=== PATIENT | female | born 1960 | race Caucasian/White ===

== ENCOUNTER → 2017-01-18 | Outpatient (POV) | payer BC, SELFPAY | PROVIDERS: Visit Provider Podiatrist ==

== ENCOUNTER → 2018-06-25 09:50 | Outpatient (CLI) | payer BC, SELFPAY ==
--- NOTE | 2018-06-25 09:54 | MM_ITS ---
MM Dig screening mamm BI w/CAD CAD Screening COMPARISON: Outside Digital mammograms with CAD 02/22/2016 and 01/19/2015 INDICATION: There is no personal or family history of breast cancer TECHNIQUE: Standard CC and MLO images were obtained. R2 CAD reviewed. FINDINGS: Minimal scattered fibroglandular densities are seen in both breast on a background of fatty type breast parenchyma, findings slightly more prominent left breast than right. There is no new or suspicious lesion in either breast and there are no suspicious microcalcifications. There are small nodes in both axilla. There is a benign-appearing calcification right breast. IMPRESSION: Fibrofatty parenchyma with no suspicious lesion seen BI-RADS Category: 2 Benign Finding(s) RECOMMENDED FOLLOW-UP: 1YR - 1 YEAR FOLLOW-UP (A letter has been sent to the patient regarding results of the study.)
== END ==
PROVIDERS: PCP Family Medicine; Visit Provider Obstetrics & Gynecology
DX: Z12.31 Encounter for screening mammogram for malignant neoplasm of breast (principal)
CPT/HCPCS: 77067

== ENCOUNTER 2019-08-10 00:35 | Observation (INO) | payer BC, SELFPAY ==
[2019-08-10] VITALS (9 sets, daily range): BP systolic 105–156; BP diastolic 58–89; PULSE 60–80; RESP 16–17; TEMP 36.5–36.6; O2SAT 95–99; BMI 34.1; BMI 34.4
--- NOTE | 2019-08-10 | CA_ITS ---
APPROVED REPORT Exam: Exercise Treadmill Technologist: Yvette Frias Ht: 5 ft 5 in Wt: 206 lbs BSA: 2.00 m2 HR: 64 bpm BP: 109/69 mmHg Indications: Chest pain Medical History Medications: Omeprazole,,,,, Estradiol,,,,, ProGESTERONE,,,,, Stress Test Details Test: Daniel HR Resting HR: 87 bpm Max Heart Rate (APMHR): 162 bpm Max HR Achieved: 140 bpm Target HR (85% APMHR): 137 bpm % of APMHR: 86 Recovery HR: 77 bpm BP Resting BP: 109.0/69.0 mmHg Max BP: 152.0/63.0 mmHg Recovery BP: 141.0/75.0 mmHg ECG Clinical Exercise duration: 04:24 min Highest Stage Achieved: Exercise capacity: 7.0 METs Stress ECG Conclusion Resting ECG: Sinus rhythm Daniel protocol completed. Patient exercised 04:24. Test stopped due to shortness of breath Symptoms: Shortness of breath at peak exercise. Resolved in recovery. No chest pain. Arrhythmias/Ectopy: No ectopy ST-T Changes: Less than 1.[address] depression. Conclusion: GXT only. Poor exercise capacity. No ectopy. Less than 1.[address] depression. No chest pain. Appropriate blood pressure response.Negative test for ischemia. Test Summary REST . . . . . . . Sitting REST 02:54 0.0 0.0 87 . 109/ 69 . . Stage 1 01:00 10.0 1.7 112 . . . . Stage 1 02:00 10.0 1.7 122 . . . . Stage 1 03:00 10.0 1.7 129 . 124/ 76 . . Stage 2 01:00 12.0 2.5 139 . . . . Stage 2 01:24 12.0 2.5 140 . . . Stop exercise at 04:24 RECOVERY 01:00 0.0 0.0 109 . 142/ 82 . . RECOVERY 02:00 0.0 0.0 91 . 142/ 82 . . RECOVERY 03:00 0.0 0.0 82 . 152/ 63 . . RECOVERY 04:00 0.0 0.0 75 . 141/ 75 . . RECOVERY 04:02 0.0 0.0 75 . 141/ 75 . . Electronically signed by : Juventino Dangelo, 08/10/2019 16:55:13
--- NOTE | 2019-08-10 00:44 | ECG_ITS ---
APPROVED REPORT Exam: Resting ECG HR:73 bpm ECG Measurements Heart Rate 73 AXES SD 174 P 34 QRSd 88 QRS 17 QT 406 T 7 QTc 447 <Conclusion> Normal sinus rhythm Moderate voltage criteria for LVH, may be normal variant Borderline ECG Electronically signed by : Jatinder Pretty, 08/10/2019 20:56:38
--- NOTE | 2019-08-10 00:45 | XR_ITS ---
PROCEDURE: XR CHEST 2V CLINICAL HISTORY: chest pain COMPARISON: No exams were available for comparison FINDINGS: Normal heart size. There is a small hiatal hernia with an air-fluid level. Calcified granuloma is noted in the left lower lung zone. On the lateral view there is a nodular opacity overlying the mid to posterior aspect of the heart measuring 9 mm. No lobar consolidation or collapse. No acute bony abnormalities. IMPRESSION: 1. No acute finding. 2. Hiatal hernia. 3. Old granulomatous disease with in terminate nodular opacity overlying the mid aspect of the heart posteriorly on the lateral view. Possibly related to calcified node or granuloma. Follow-up such as chest CT may confirm Dictated by: Jarek Hendricks MD 08/10/2019 05:20 Electronically signed by Jarek Hendricks MD in [place] 08/10/2019 05:20
--- NOTE | 2019-08-10 00:54 | HMH.EDCP ---
ED Disposition Clinical Impression: Obesity (BMI 30.0-34.9) Chest pain Qualifiers: Chest pain type: precordial pain Qualified Code(s): R07.2 - Precordial pain Disposition: Admitted as Observation Condition on Discharge: Good Referrals: Provider,Referral, [Primary Care Provider] - - Critical Care Critical Care Time: No Attestation: On 08/10/19, the high probability of a clinically significant, sudden or life threatening deterioration of the following system(s) required my full and direct attention, intervention and personal management. The time I documented below is in addition to time spent performing reported procedures but includes the following listed in this critical care notation. Medical Decision Making - Medical Records Medical records reviewed: Yes: I reviewed the patient's medical records. - [place] Inquiry Pt receiving controlled substance: No Vital Signs: 08/10/19 00:36 Temperature 97.7 F Temperature Source Oral Pulse Rate [Left Radial] 75 Respiratory Rate 16 Blood Pressure [Right Arm] 156/89 H Blood Pressure Mean [Right Arm] 111 Blood Pressure Source [Right Arm] Automatic Cuff Blood Pressure Position [Right Arm] Sitting 02 Sat by Pulse Oximetry 96 Oxygen Delivery Method Room Air - Lab Data Lab results reviewed: Yes: I reviewed the patient's lab results. Lab Results 08/10/19 00:40: Troponin I < 0.01 08/10/19 00:40: WBC 6.7, RBC 4.77, Hgb 13.9, Hct 42.8, MCV 89.8, MCH 29.2, MCHC 32.4, RDW 12.7, Plt Count 201, MPV 8.5, Neut % (Auto) 56.3, Lymph % (Auto) 35.3, [place] % (Auto) 4.5, Eos % (Auto) 3.5, Baso % (Auto) 0.4, Neut # (Auto) 3.8, Lymph # (Auto) 2.4, [place] # (Auto) 0.3, Eos # (Auto) 0.2, Baso # (Auto) 0.0 08/10/19 00:40: Sodium 138, Potassium 3.7, Chloride 106, Carbon Dioxide 24, Anion Gap 11.7, BUN 22 H, Creatinine 0.90, Estimated Creat Clear 100, Estimated GFR 64, Est GFR ( Amer) 78, Glucose 153 H, Calcium 9.1 Result diagrams: 08/10/19 00:40 08/10/19 00:40 Orders (Tests/Meds): ED MEDICATIONS Generic Name Dose Route Start Last Admin Trade Name Freq PRN Reason Stop Dose Admin Sodium Chloride 1,000 mls @ 999 mls/hr 08/10/19 00:45 08/10/19 01:05 Sod Chlor 0.9% 1000ml Bag IV 08/10/19 01:45 999 mls/hr .Q1H1M VEENA Administration Sodium Chloride 8 ml 08/10/19 00:45 08/10/19 01:06 Sodium Chloride 0.9% 10ml Vial IV 09/09/19 00:44 8 ml NEEDED PRN Administration dilute pepcid Discontinued Medications Generic Name Dose Route Start Last Admin Trade Name Severoq PRN Reason Stop Dose Admin Aspirin 324 mg 08/10/19 00:45 08/10/19 01:05 Aspirin 81mg Chewable Tablet PO 08/10/19 00:46 324 mg ONCE ONE Administration Famotidine 20 mg 08/10/19 00:45 08/10/19 01:05 Pepcid 20mg/2ml Vial IV 08/10/19 00:46 20 mg ONCE ONE Administration Metoclopramide HCl 10 mg 08/10/19 00:45 08/10/19 01:05 Reglan 10mg/2ml Vial IVP 08/10/19 00:46 10 mg ONCE ONE Administration Nitroglycerin 1 gm 08/10/19 00:45 08/10/19 01:05 Nitroglycerin 1 Inch Oint Udp TD 08/10/19 00:46 1 gm ONCE ONE Administration ORDERS Category Date Time Status XR chest 2V Stat Exams 08/10/19 00:45 Taken Troponin I Q3H Lab 08/10/19 03:45 Ordered Troponin I Q3H Lab 08/10/19 06:45 Ordered - Radiology Data #1 Image(s): Chest Image Reviewed: Yes I reviewed the patient's radiology image Preliminary Findings: Normal/NAD - ECG Data Tracing #1 Normal Sinus Rhythm: Yes Ischemic changes: non-specific ST-T wave changes - Physician Consults Physician Consulted: yousif Reason -: Admission - Reevaluation(s) Time: 01:22 Reevaluation #1: doing better Medical Decision Narrative: pt with chest pain and will need serial enz and card eval - Chest Pain HPI - General Chief Complaint: Chest Pain Stated Complaint: chest pain Time Seen by Provider: 08/10/19 00:54 Mode of Arrival: Ambulatory Source of Information: Patient, Medic
[2019-08-10 01:00] LABS: Basophils % 0.4 % (0.1-2.0); Eosinophils # 0.2 K/mm3 (0.0-0.4); Eosinophils % 3.5 % (0.1-12.0); Hematocrit 42.8 % (37.0-47.0); Hemoglobin 13.9 g/dL (12.2-16.2); Lymphocytes # 2.4 K/mm3 (0.7-4.5); Lymphocytes % 35.3 % (10-50); Mean Corpuscular HGB Conc 32.4 g/dL (31.8-35.4); Mean Corpuscular Hemoglobin 29.2 pg (27.0-31.2); Mean Corpuscular Volume 89.8 fl (81-99); Mean Platelet Volume 8.5 fl (7.4-10.4); Monocytes # 0.3 K/mm3 (0.1-1.0); Monocytes % 4.5 % (1.7-9.3); Neutrophils # 3.8 K/mm3 (1.8-7.8); Neutrophils % 56.3 % (37.0-80.0); Platelet Count 201 K/mm3 (142-424); Red Blood Count 4.77 M/mm3 (4.20-5.40); Red Cell Distribution Width 12.7 % (11.5-17.5); White Blood Count 6.7 K/mm3 (4.8-10.8)
[2019-08-10 01:05] LABS: Anion Gap 11.7 mEq/L (5-15); Blood Urea Nitrogen 22 mg/dl (7-17); Calcium 9.1 mg/dl (8.4-10.2); Carbon Dioxide 24 mmol/L (22.0-30.0); Chloride 106 mmol/L (98-107); Creatinine Clearance Estimated 100 mL/min (50-200); Estimated Glomerular Filt Rate 64 ml/min (>60); GFR (African American) 78 ML/MIN (>60); Glucose 153 mg/dl (74-100); Potassium 3.7 mmoL/L (3.5-5.1); Sodium 138 mmol/L (136-145)
[2019-08-10 01:19] LABS: Troponin I < 0.01 ng/ml (0.00-0.034)
--- NOTE | 2019-08-10 02:10 | PC.NURSE ---
pt arrived to floor via wheelchair from ED
[2019-08-10 04:06] LABS: Troponin I < 0.01 ng/ml (0.00-0.034)
--- NOTE | 2019-08-10 05:02 | PC.NURSE ---
Pt new admit this shift d/t CP. Pt states her pain is in mid epigastric area and describes it as full of pressure . Nitro remains in place at this time from ED. No other complaints reported since arriving to floor. NSR on tele. Tolerating RA. Pt ambulates to BR independently and voids w/o difficulty. NPO for cardiology consult in am.
[2019-08-10 06:55] LABS: Eosinophils # 0.1 K/mm3 (0.0-0.4); Monocytes # 0.4 K/mm3 (0.1-1.0)
[2019-08-10 07:00] LABS: Chloride 109 mmol/L (98-107); Potassium 4.2 mmoL/L (3.5-5.1); Sodium 137 mmol/L (136-145)
[2019-08-10 07:02] LABS: Basophils % 0.4 % (0.1-2.0); Eosinophils % 1.2 % (0.1-12.0); Hematocrit 37.2 % (37.0-47.0); Lymphocytes # 1.3 K/mm3 (0.7-4.5); Lymphocytes % 18.6 % (10-50); Mean Corpuscular HGB Conc 33.8 g/dL (31.8-35.4); Mean Corpuscular Hemoglobin 29.8 pg (27.0-31.2); Mean Platelet Volume 8.3 fl (7.4-10.4); Monocytes % 5.1 % (1.7-9.3); Neutrophils # 5.3 K/mm3 (1.8-7.8); Neutrophils % 74.6 % (37.0-80.0); Platelet Count 198 K/mm3 (142-424); Red Blood Count 4.23 M/mm3 (4.20-5.40); Red Cell Distribution Width 12.5 % (11.5-17.5); White Blood Count 7.1 K/mm3 (4.8-10.8)
[2019-08-10 07:03] LABS: Anion Gap 10.2 mEq/L (5-15); Blood Urea Nitrogen 19 mg/dl (7-17); Calcium 8.2 mg/dl (8.4-10.2); Carbon Dioxide 22 mmol/L (22.0-30.0); Chol/HDL Ratio 2.9 (1-3.5); Cholesterol 112 mg/dl (140-200); Creatinine Clearance Estimated 129 mL/min (50-200); Estimated Glomerular Filt Rate 86 ml/min (>60); GFR (African American) 104 ML/MIN (>60); Glucose 110 mg/dl (74-100); HDL Cholesterol 39 mg/dl (40-60); Triglycerides 62 mg/dl (30-150); VLDL Cholesterol 12 mg/dL (0-40)
[2019-08-10 07:13] LABS: Hemoglobin 12.6 g/dL (12.2-16.2)
[2019-08-10 07:14] LABS: Direct LDL Cholesterol 67.54 mg/dL (100-129)
[2019-08-10 07:18] LABS: Troponin I < 0.01 ng/ml (0.00-0.034)
--- NOTE | 2019-08-10 07:21 | HMH.HP ---
*Admission Date: 08/10/19 *Chief complaint: Lower chest/epigastric discomfort *History of present illness: 59-year-old female with no cardiac history presented to the emergency department after an hour of increasing pressure in the lower chest and epigastrium. Patient essentially points to the area of the xiphoid process as the location of pain. She describes pressure that gradually increase over the course of an hour with discomfort radiating into her left shoulder and between her shoulder blades. She denies nausea but when pain did not improve her encouraged her to seek treatment at the emergency department. Patient admits she became diaphoretic while preparing to come to the emergency department. However by the time she arrived to the emergency department she had noticed that the pain was beginning to ease. She was evaluated in the emergency department and first set of cardiac enzymes was negative. EKG did not reveal any cardiac injury or signs of ischemia. Patient was given nitroglycerin. This did not completely resolve her chest discomfort. Patient was admitted for for further rule out with cardiac enzymes. Patient reports even this morning she has a very slight amount of pressure in the epigastrium and lower chest. She ruled out overnight for MO. In regards to cardiac risk factors patient's father has had cardiac stents beginning in his 70s and has a pacemaker. She has no personal history of hypertension, diabetes, hyperlipidemia. She is a non-smoker. [facility] History I have reviewed the patient's past medical history: Yes Medical History: Reports:: Gastroesophageal Reflux Disease(GERD) Denies:: Cancer, Diabetes Mellitus Type 1, Diabetes Mellitus Type 2, MRSA *Have you ever received a pneumonia vaccine?: No *Have you received a flu vaccine this season?: No Other Medical History: Reports: Anemia, Arthritis, Other (mitral valve prolapse) Laterality Cases: Right: Total Hip Replacement Other Surgeries: Yes: Colonoscopy, EGD, Tubal Ligation, Other (wrist) Amputation: No Fractures: Yes - *Social History Educational Level: Completed College Smoking Status: Never smoker # Packs/Day (cigarettes): 0 #Yrs smoked (if former smoker): 0 Alcohol Intake: never Alcohol Intake Frequency:: other Substance Use Type: denies use *Occupational Status:: retired Housing: house Household Members: spouse *Travel in the last 8 weeks: None Family Hx:: Heart Attack, Hypertension Review of Systems - Review of Systems Review of systems:: pertinent systems reviewed and negative unless documented below - *Neurologic Denies seizure-like activity Meds Home Medications Medication Instructions Recorded Confirmed Type estradiol 0.075 mg/24 hr 0.075 mg TRANSDERMA DIRECTED 85 09/09/17 08/10/19 History semiweekly transdermal patch Days #24 omeprazole 20 mg capsule,delayed 20 mg PO DAILY 90 Days #90 09/09/17 08/10/19 History release progesterone micronized 100 mg 100 mg PO DAILY 90 Days #09/09/17 08/10/19 History capsule Allergies Allergy/AdvReac Type Severity Reaction Status Date / Time Penicillins [PENICILLINS] Allergy Intermediate I-RASH Verified 08/10/19 00:46 Sulfa (Sulfonamide Allergy Intermediate I-HIVES Verified 08/10/19 00:46 Antibiotics) [SULFA (SULFONAMIDE ANTIBIOTICS)] Exam Vital signs and Labs for Last 24 Hours: Temp Pulse Resp BP Pulse Ox 97.7 F 70 16 126/77 98 08/10/19 02:10 08/10/19 04:00 08/10/19 02:10 08/10/19 02:10 08/10/19 02:10 Laboratory Results - last 24 hr 08/10/19 00:40: Troponin I < 0.01 08/10/19 00:40: WBC 6.7, RBC 4.77, Hgb 13.9, Hct 42.8, MCV 89.8, MCH 29.2, MCHC 32.4, RDW 12.7, Plt Count 201, MPV 8.5, Neut % (Auto) 56.3, Lymph % (Auto) 35.3, [place] % (Auto) 4.5, Eos % (Auto) 3.5, Baso % (Auto) 0.4, Neut # (Auto) 3.8, Lymph # (Auto) 2.4, [place] # (Auto) 0.3, Eos # (Auto) 0.2, Baso # (Auto) 0.0 08/10/19 00:40: Sodium 138, Potassium 3.7, Chloride 106, Carbon Diox
--- NOTE | 2019-08-10 07:35 | HMH.PHAINT ---
HOME MEDICATION RECONCILIATION COMPLETED USING LIST FROM HOME PHARMACY Mayra MANRIQUEZ
--- NOTE | 2019-08-10 07:35 | HMH.PHAVTE ---
[facility] Pharmacy VTE Monitoring - Patient Demographics Admission date: 08/10/19 Report Date: 08/10/19 Time: 07:36 Allergies/Adverse Reactions: Patient Allergies Penicillins [PENICILLINS] Allergy (Intermediate, Verified 08/10/19 00:46) I-RASH Sulfa (Sulfonamide Antibiotics) [SULFA (SULFONAMIDE ANTIBIOTICS)] Allergy (Intermediate, Verified 08/10/19 00:46) I-HIVES Height: 1.65 m Weight: 93.638 kg Patient Problems: Current Active Problems Chest pain (Acute) Obesity (BMI 30.0-34.9) (Acute) - VTE Risk Labs: VTE Related Lab Results Hgb 12.6 g/dL (12.2-16.2) 08/10/19 06:30 Hct 37.2 % (37.0-47.0) 08/10/19 06:30 Plt Count 198 K/mm3 (142-424) 08/10/19 06:30 BUN 19 mg/dl (7-17) H 08/10/19 06:30 Creatinine 0.70 mg/dl (0.52-1.04) D 08/10/19 06:30 Estimated Creat Clear 100 mL/min (50-200) 08/10/19 00:40 Was VTE Risk Assessment Performed: Yes VTE Score: 5 VTE Risk Level: Low Risk Clinical Trial Participant: No - Prophylaxis VTE Prophylaxis Ordered?: Yes Types of VTE Prophylaxis: TEDS Knee High
--- NOTE | 2019-08-10 08:00 | CA_ITS ---
APPROVED REPORT EXAM: Comprehensive 2D, Doppler, and color-flow Echocardiogram Sql Analyst: Leah Carpenter RVT Ht: 5 ft 5 in Wt: 205lbs BSA: 2.00 BP: 156/89 mmHg Indications: CP,HX MVP,GERD 2D Dimensions LVOT 1.84 cm (M/F) 1.5-2.5 M-Mode Dimensions RVDd 2.82 cm (0.9-2.6) LVDd 4.99 cm (3.5-5.7) LVDs 3.42 cm (3.5-5.7) IVSd 0.89 cm (0.6-1.1) PWd 0.54 cm (0.6-1.1) EF (Teich) 59.10% FS 31.50% EDV (Teich) 117.70 mL ESV (Teich) 48.10 mL LV Diastology E/A Ratio 0.90 Mitral Valve MV A Velocity 63.00 (40-130 cm/s) Left Ventricle Left atrium is normal size, left ventricle is normal size, left ventricle wall thickness is upper limit of the normal, there is preserved left ventricular systolic function visually estimated ejection fraction 55% with no regional wall motion abnormality, grade 1 diastolic dysfunction seen without tissue Doppler evidence of raise left atrial pressure. Right Ventricle Right atrium is normal size, right ventricle is mildly enlarged with normal contractility. Aortic Valve Aortic valve is minimally thickened and fibrosed, there is no aortic stenosis or aortic insufficiency. Mitral Valve Mitral valve appears to be grossly normal, there is no obvious mitral valve prolapse or mitral regurgitation. Tricuspid Valve Tricuspid valve is grossly normal, there is mild tricuspid regurgitation, tricuspid regurgitation jet velocity is inadequate for calculation of the right ventricular systolic pressure. Pulmonic Valve Pulmonic valve is minimally thickened and fibrosed, there is no pulmonic stenosis, there is mild pulmonic insufficiency. Great Vessels Aortic root is normal size. Pericardium No significant pericardial effusion noted, inferior vena cava is normal size with normal inspiratory collapse. Conclusion 1. Normal left ventricular size, preserved left ventricular systolic function, visually estimated ejection fraction 55% with no regional wall motion abnormality, grade 1 diastolic dysfunction seen without tissue Doppler evidence of raise left atrial pressure. 2. Mildly enlarged right ventricle with normal contractility. 3. No obvious mitral valve prolapse or mitral regurgitation seen 4. Mild tricuspid regurgitation. 5. No significant pericardial effusion noted, inferior vena cava is normal size with normal inspiratory collapse. Electronically signed by : Duncan Eller, 08/10/2019 19:57:27
--- NOTE | 2019-08-10 09:42 | HMH.CNCARD ---
History of Present Illness Consult date: 08/10/19 Requesting physician: Jatinder Qureshi Consult reason: chest pain Chief complaint: Abdominal/chest pain Additional Medical History:: 1. Status post esophageal dilatation, 2016, with notation of a para-esophageal hiatal hernia. 2. Chest pain, 08/2019 History of present illness: 59-year-old female with no cardiac history presented to the emergency department after an hour of increasing pressure in the lower chest and epigastrium. Patient essentially points to the area of the xiphoid process as the location of pain. She describes pressure that gradually increase over the course of an hour with discomfort radiating into her left shoulder and between her shoulder blades. She denies nausea but when pain did not improve her encouraged her to seek treatment at the emergency department. Patient admits she became diaphoretic while preparing to come to the emergency department. However by the time she arrived to the emergency department she had noticed that the pain was beginning to ease. She was evaluated in the emergency department and first set of cardiac enzymes was negative. EKG did not reveal any cardiac injury or signs of ischemia. Patient was given nitroglycerin. This did not completely resolve her chest discomfort. Patient was admitted for for further rule out with cardiac enzymes. Patient reports even this morning she has a very slight amount of pressure in the epigastrium and lower chest. She ruled out overnight for MA. In regards to cardiac risk factors patient's father has had cardiac stents beginning in his 70s and has a pacemaker. She has no personal history of hypertension, diabetes, hyperlipidemia. She is a non-smoker. The above per Dr. Qureshi. Pt denies any exertional chest pain or SOA recently. History of esophageal dilatation in 2016 with notation of paraesophageal hernia but symptoms different than current symptoms. [facility] History Medical History: Reports:: Gastroesophageal Reflux Disease(GERD) Denies:: Cancer, Diabetes Mellitus Type 1, Diabetes Mellitus Type 2, MRSA *Have you ever received a pneumonia vaccine?: No *Have you received a flu vaccine this season?: No Other Medical History: Reports: Anemia, Arthritis, Other (mitral valve prolapse) Laterality Cases: Right: Total Hip Replacement Other Surgeries: Yes: Colonoscopy, EGD, Tubal Ligation, Other (wrist) Amputation: No Fractures: Yes - *Social History Educational Level: Completed College Smoking Status: Never smoker # Packs/Day (cigarettes): 0 #Yrs smoked (if former smoker): 0 Alcohol Intake: never Alcohol Intake Frequency:: other Substance Use Type: denies use *Occupational Status:: retired Housing: house Household Members: spouse *Travel in the last 8 weeks: None Family Hx:: Heart Attack, Hypertension Meds Home Medications Medication Instructions Recorded Confirmed Type estradiol 0.075 mg/24 hr 0.075 mg TRANSDERMA DIRECTED 85 09/09/17 08/10/19 History semiweekly transdermal patch Days #24 omeprazole 20 mg capsule,delayed 20 mg PO DAILY 90 Days #09/09/17 08/10/19 History release progesterone micronized 100 mg 100 mg PO HS 90 Days #09/09/17 08/10/19 History capsule Allergies Allergy/AdvReac Type Severity Reaction Status Date / Time Penicillins [PENICILLINS] Allergy Intermediate I-RASH Verified 08/10/19 00:46 Sulfa (Sulfonamide Allergy Intermediate I-HIVES Verified 08/10/19 00:46 Antibiotics) [SULFA (SULFONAMIDE ANTIBIOTICS)] Review of Systems - Review of Systems Review of systems:: pertinent systems reviewed and negative unless documented below - *Cardiovascular Reports chest pain - *Respiratory Denies cough, Denies shortness of breath - *Gastrointestinal Denies loose stools, Denies nausea, Denies vomiting - *Genitourinary Denies blood in urine - *Musculoskeletal Denies joint pain, Denies back pain - *Neurologic Denies seizure-like activ
--- NOTE | 2019-08-10 10:35 | PC.NURSE ---
Pt down for stress test
--- NOTE | 2019-08-10 14:48 | PC.NURSE ---
Spoke with AMARA Treadwell and he stated from a cardiac standpoint pt could be d/c'd. He gave order for a reg diet as well. Noted. Awaiting update from Dr. Qureshi. Pt is resting in bed at this time with no c/o. Alert and oriented and able to make needs known. Continues on tele. VSS. CB in reach. Teds applied to ble.
--- NOTE | 2019-08-10 16:35 | HMH.DCSUM ---
General - General Admission date:: 08/10/19 Discharge date: 08/10/19 HPI HPI: 59-year-old female with no cardiac history presented to the emergency department after an hour of increasing pressure in the lower chest and epigastrium. Patient essentially points to the area of the xiphoid process as the location of pain. She describes pressure that gradually increase over the course of an hour with discomfort radiating into her left shoulder and between her shoulder blades. She denies nausea but when pain did not improve her encouraged her to seek treatment at the emergency department. Patient admits she became diaphoretic while preparing to come to the emergency department. However by the time she arrived to the emergency department she had noticed that the pain was beginning to ease. She was evaluated in the emergency department and first set of cardiac enzymes was negative. EKG did not reveal any cardiac injury or signs of ischemia. Patient was given nitroglycerin. This did not completely resolve her chest discomfort. Patient was admitted for for further rule out with cardiac enzymes. Patient reports even this morning she has a very slight amount of pressure in the epigastrium and lower chest. She ruled out overnight for OR. In regards to cardiac risk factors patient's father has had cardiac stents beginning in his 70s and has a pacemaker. She has no personal history of hypertension, diabetes, hyperlipidemia. She is a non-smoker. Hospital Course Hospital Course: Patient was admitted and ruled out for OR. Despite ruling out patient had persistence of a very mild discomfort in the lower chest and epigastrium. Review of records shows patient has a history of an esophageal Schatzki's ring as well as a small paraesophageal hernia. She denies frequent heartburn and has taken her omeprazole as scheduled. Patient was scheduled for a stress echo which was reported as normal. Patient had no further chest pain and was discharged home. Patient will follow-up in the office at the end of the week. Objective Vital signs: Temp Pulse Resp BP Pulse Ox 97.7 F 70 17 105/58 L 95 08/10/19 08:00 08/10/19 12:09 08/10/19 08:00 08/10/19 08:00 08/10/19 08:00 Results Labs on day of discharge: Labs from last 24 hours 08/10/19 08/10/19 08/10/19 06:30 06:30 03:35 WBC 7.1 RBC 4.23 Hgb 12.6 Hct 37.2 MCV 88.0 MCH 29.8 MCHC 33.8 RDW 12.5 Plt Count 198 MPV 8.3 Neut % (Auto) 74.6 Lymph % (Auto) 18.6 [place] % (Auto) 5.1 Eos % (Auto) 1.2 Baso % (Auto) 0.4 Neut # (Auto) 5.3 Lymph # (Auto) 1.3 [place] # (Auto) 0.4 Eos # (Auto) 0.1 Baso # (Auto) 0.0 Sodium 137 Potassium 4.2 Chloride 109 H Carbon Dioxide 22 Anion Gap 10.2 BUN 19 H Creatinine 0.70 D Estimated Creat Clear 129 Estimated GFR 86 Est GFR ( Amer) 104 D Glucose 110 H D Calcium 8.2 L Magnesium 2.0 Troponin I < 0.01 < 0.01 Triglycerides 62 Cholesterol 112 L LDL Cholesterol Direct 67.54 L VLDL Cholesterol 12 HDL Cholesterol 39 L Cholesterol/HDL Ratio 2.9 08/10/19 08/10/19 08/10/19 00:40 00:40 00:40 WBC 6.7 RBC 4.77 Hgb 13.9 Hct 42.8 MCV 89.8 MCH 29.2 MCHC 32.4 RDW 12.7 Plt Count 201 MPV 8.5 Neut % (Auto) 56.3 Lymph % (Auto) 35.3 [place] % (Auto) 4.5 Eos % (Auto) 3.5 Baso % (Auto) 0.4 Neut # (Auto) 3.8 Lymph # (Auto) 2.4 [place] # (Auto) 0.3 Eos # (Auto) 0.2 Baso # (Auto) 0.0 Sodium 138 Potassium 3.7 Chloride 106 Carbon Dioxide 24 Anion Gap 11.7 BUN 22 H Creatinine 0.90 Estimated Creat Clear 100 Estimated GFR 64 Est GFR ( Amer) 78 Glucose 153 H Calcium 9.1 Magnesium Troponin I < 0.01 Triglycerides Cholesterol LDL Cholesterol Direct VLDL Cholesterol HDL Cholesterol [place]
== END 2019-08-10 18:28 | disposition home or self-care (01) ==
LOC: ER 01:24 → 2ND 01:57
PROVIDERS: Admitting Provider Internal Medicine Adolescent Medicine; Emergency Provider Emergency Medicine; PCP Family Medicine; Visit Provider Family Medicine
DX: R07.2 Precordial pain (principal); Z79.899 Other long term (current) drug therapy; Z88.0 Allergy status to penicillin; Z88.1 Allergy status to other antibiotic agents; K21.9 Gastro-esophageal reflux disease without esophagitis; K22.2 Esophageal obstruction
CPT/HCPCS: 36415; 71046; 80048; 80061; 83735; 84484; 85025; 93005; 93017; 93306; 96365; 96375; 99284; G0378

== ENCOUNTER → 2019-08-21 08:51 | Outpatient (CLI) | payer BC, SELFPAY ==
--- NOTE | 2019-08-21 08:58 | FL_ITS ---
PROCEDURE: FL UPPER GI W AIR CLINICAL INDICATION: Epigastric pain,HIATAL HERNIA with previous esophageal dilatation COMPARISON: UGI UGI SERIES W/ AIR from 03/02/2016 FINDINGS: The swallowing function is normal. There are few tertiary contractions of the distal 3rd of the esophagus. Again noted is the small diverticulum of the distal 3rd of the esophagus at approximately the level of the rachelle likely a traction diverticulum. There is a diffuse smoothly marginated stricture of the distal esophagus just above a moderately large paraesophageal hiatal hernia. I elected not to give the patient the 13 mm barium tablet as I am certain that it would hold up at the stricture. The stricture segment is only slightly larger in caliber than on the previous study February 2016 which was done presumably prior to the esophageal dilatation. The stomach otherwise appear normal. There is mild follow our spasm however a 5 minutes overhead delayed film showed progression of barium into the duodenal sweep and proximal small bowel which appeared normal. IMPRESSION: Mild esophageal dyskinesia with persistent traction diverticulum distal 3rd of the esophagus and basically stable large paraesophageal hiatal hernia and persistent and or recurrent stricture of the distal esophagus just proximal to the para esophageal hernia. The fluoroscopic time was 2.4 minutes Dictated by: Dr. Dank Wilson MD 08/21/2019 10:[address] Dank Wilson MD in [place] 08/21/2019 10:34
== END ==
PROVIDERS: PCP Family Medicine; Visit Provider Family Medicine
DX: K44.9 Diaphragmatic hernia without obstruction or gangrene (principal); R07.89 Other chest pain
CPT/HCPCS: 74246

== ENCOUNTER → 2019-09-17 11:15 | Outpatient (CLI) | payer BC, SELFPAY ==
[2019-09-17 14:08] LABS: Coronavirus 19 IgG Antibody Negative (Negative); Coronavirus 19 IgM Antibody Negative (Negative)
== END ==
PROVIDERS: Visit Provider Internal Medicine Gastroenterology
DX: Z01.818 Encounter for other preprocedural examination (principal)
CPT/HCPCS: 36415; 86328

== ENCOUNTER 2019-09-18 09:22 | Day surgery (SDC) | payer BC, SELFPAY ==
[2019-09-15 13:56] VITALS: BMI 34.1
[2019-09-18] VITALS (7 sets, daily range): BP systolic 98–128; BP diastolic 62–75; PULSE 47–69; RESP 16; TEMP 36.1–36.7; O2SAT 93–100
--- NOTE | 2019-09-18 11:11 | HMH.PROC ---
[facility] Procedure Note Procedure Note:: Upper Endoscopy Procedure Report: Esophagogastroduodenoscopy with cold biopsies and TTS balloon dilation Endoscopost: Franklin Palma II, MD Referring Physician: Jatinder Qureshi MD Date of Procedure: September 18, 2019 Equipment: Olympus GIF 180 standard upper endoscope Sedation: MAC sedation Indications: Mrs. Finnegan is a 59-year-old female who is here for follow-up diagnostic upper endoscopy for noncardiac chest pain. She did have an upper endoscopy with ga in May 2016 and at that time she was having symptoms of dysphagia and globus sensation. Recently, she reports no significant but more rare dysphagia. She does note lower retrosternal burning, fullness and pressure. This became more painful when she went to the emergency department 3 weeks ago. Her last EGD did show a 3 to 4 cm hiatal hernia with paraesophageal component. The patient reports no reflux, bloating, belching or nausea. She does have some early satiety. At the time of her ED visit, she was admitted overnight and ruled out for any cardiac chest pain. Her EKG and troponins were normal. She had an unremarkable stress echocardiogram. Procedure: Prior to the procedure, a history and physical exam was performed, and patient's medications and allergies were reviewed. The risks, benefits and alternatives of the sedation and procedure were discussed with the patient. All questions were answered and informed consent was obtained. The patient was brought to the procedure room. Patient identification and proposed procedure were verified by the physician and the nurse. The patient was placed in a left lateral decubitus position and the scope was passed under direct vision. Throughout the procedure, the patient's blood pressure, pulse, and oxygen saturations were monitored continuously. The upper GI endoscopy was accomplished without difficulty. The patient tolerated the procedure well. Findings: The scope was passed directly into the upper esophagus and advanced to the third portion of the duodenum. The post bulbar duodenum and duodenal bulb were normal with normal mucosa and conniventes. The scope was withdrawn through a normal duodenal bulb and pylorus into the stomach. There was mild linear reactive gastropathy of the antrum and body of the stomach. The remainder of the antrum, body and fundus of the stomach were grossly normal. Upon retroflexion there was a 4 cm hiatal hernia with paraesophageal component/paraesophageal hernia but no evidence of gastric volvulus. The scope was then withdrawn into the esophagus. There was no evidence of reflux esophagitis, Altamirano's or Schatzki's ring. Biopsies were taken at the GE junction to rule out GERD. There were tertiary contractions and evidence of moderate esophageal dysmotility. The entire esophagus was dilated to 60 Czech/20 mm with a TTS hydrostatic balloon. There was some resistance at the cricopharyngeus. The remainder of the esophageal mucosa was normal. Impression: 1. Hiatal hernia/paraesophageal hernia (4 cm) 2. Nonerosive GERD with mild esophageal dysmotility and mild cricopharyngeal spasm 3. Mild linear reactive gastropathy Plan: I will discuss the findings with patient and family. I do feel that she may need hiatal hernia repair because of this paraesophageal component. I would consider discussion with the foregut surgeon at the [facility] (Dr. Mele Rosales). We will discuss additional treatment options. I will follow-up the biopsies.
== END 2019-09-18 11:58 | disposition home or self-care (01) ==
LOC: OUTP 09:24
PROVIDERS: PCP Family Medicine; Visit Provider Internal Medicine Gastroenterology
PROC: 0DJ08ZZ Inspection of Upper Intestinal Tract, Via Natural or Artificial Opening Endoscopic (ICD-10-PCS; CPT 43235; principal; 2019-09-18 10:30)
DX: K44.9 Diaphragmatic hernia without obstruction or gangrene (principal); K21.9 Gastro-esophageal reflux disease without esophagitis; K22.2 Esophageal obstruction; J39.2 Other diseases of pharynx; K31.9 Disease of stomach and duodenum, unspecified; Z88.0 Allergy status to penicillin; Z88.2 Allergy status to sulfonamides; Z79.890 Hormone replacement therapy; Z79.899 Other long term (current) drug therapy; Z96.641 Presence of right artificial hip joint; Z82.49 Family history of ischemic heart disease and other diseases of the circulatory system; Z84.89 Family history of other specified conditions
CPT/HCPCS: 43239; 43249; C1726

== ENCOUNTER → 2019-10-29 08:27 | Outpatient (CLI) | payer BC, SELFPAY ==
[2019-10-29 09:52] LABS: HCG Qualitative, Serum Negative (Negative)
[2019-10-29 10:42] LABS: Coronavirus 19 IgG Antibody Negative (Negative); Coronavirus 19 IgM Antibody Negative (Negative)
== END ==
PROVIDERS: Visit Provider Internal Medicine Gastroenterology
DX: Z01.818 Encounter for other preprocedural examination (principal); Z12.11 Encounter for screening for malignant neoplasm of colon
CPT/HCPCS: 36415; 84703; 86328

== ENCOUNTER 2019-10-30 08:56 | Day surgery (SDC) | payer BC, SELFPAY ==
[2019-10-22 11:33] VITALS: BMI 34.1
[2019-10-30] VITALS (7 sets, daily range): BP systolic 95–127; BP diastolic 47–75; PULSE 49–70; RESP 18; TEMP 36.3–37.1; O2SAT 97–100
--- NOTE | 2019-10-30 10:43 | HMH.ANESCL ---
[facility] Anesthesia Checklist - Patient Identification Patient Identification: Arm Band - Structural Data Admitted From: Home Planned Operative Procedure/s: colonoscopy Consent for Planned Operative Procedure(s) Verified: Yes Verified Documents: Surgical Consent, History and Physical - NPO Status Verified Time NPO: 00:00 - Additional verifications Anesthesia Reactions: No - Airway Assessment C-Spine Mobility Assessed: Yes (mp2) TMJ Mobility Assessed: Yes Dentition: Good Dentition - Neurological Assessment Level of Consciousness: Awake, Alert - Anesthesia Plan Anesthesia Risk discussed: Yes Anesthesia Plan: Verified ASA Class: II Anesthesia Type: MAC [facility] History I have reviewed the patient's past medical history: Yes Medical History: Reports:: Gastroesophageal Reflux Disease(GERD), Valvular Heart Disease Denies:: Cancer, Diabetes Mellitus Type 1, Diabetes Mellitus Type 2, Internal Pacemaker, MRSA, Seizures *Have you ever received a pneumonia vaccine?: No *Have you received a flu vaccine this season?: No Other Medical History: Reports: Anemia, Arthritis, Other (mitral valve prolapse) Anesthesia experience/problems:: nac Laterality Cases: Left: Other, Right: Total Hip Replacement Other Surgeries: Yes: Colonoscopy, EGD, Tubal Ligation, Other (wrist). No: Pacemaker Amputation: No Fractures: No - *Social History Last grade of school completed: Advanced degree Smoking Status: Never smoker # Packs/Day (cigarettes): 0 #Yrs smoked (if former smoker): 0 Alcohol Intake: never Alcohol Intake Frequency:: other Substance Use Type: denies use *Occupational Status:: unemployed Housing: house Household Members: spouse *Travel in the last 8 weeks: Inside the [facility] Family Hx:: Coronary Artery Disease, Hypertension
--- NOTE | 2019-10-30 11:05 | P.PCN_ITS ---
[facility] Procedure Note Procedure Note:: Colonoscopy Procedure Report: Colonoscopy with cold snare polypectomy Endoscopist: Franklin Palma II, MD Referring physician: Jatinder Qureshi MD Date of Procedure: October 30, 2019 Equipment: Olympus 180 variable stiffness pediatric colonoscope Sedation: MAC sedation Indication: Mrs. Finnegan is a 59-year-old female who is here for screening/surveillance colonoscopy. The patient reports no abdominal pain but previously had some noncardiac chest pain which has improved. She does state that simethicone helps. The patient reports no abdominal pain, weight loss, change in her bowel habits or rectal bleeding. She reports no family history of colon cancer. She does state that her mother and grandmother had diverticulitis. The patient's last colonoscopy 7 years ago was normal. Procedure: Prior to the procedure, a history and physical exam was performed, and patient's medications and allergies were reviewed. The risks, benefits and alternatives of the sedation and procedure were discussed with the patient. All questions were answered and informed consent was obtained. The patient was brought to the procedure room. Patient identification and proposed procedure were verified by the physician and the nurse. The patient was placed in a left lateral decubitus position and the scope was passed under direct vision. Throughout the procedure, the patient's blood pressure, pulse, and oxygen saturations were monitored continuously. The colonoscopy was accomplished without difficulty. The patient tolerated the procedure well. Findings: On digital rectal examination there was normal rectal tone. There were no external hemorrhoids. The colonoscope was introduced through the anal canal to the rectum and advanced to the cecum. The ileocecal valve and appendiceal orifice were identified. The scope was advanced a short distance into the ileum which appeared grossly normal. The scope was then withdrawn into the colon. The cecum, ascending and transverse colon and mucosa were grossly normal. There was a diminutive 4 to 5 mm polyp in the descending colon removed via cold snare polypectomy. There were scattered diverticuli throughout the descending and sigmoid colon (LEFT colon). The rectum itself was normal. Upon retroflexion within the rectum there were grade 1 internal hemorrhoids. The preparation was excellent throughout with Lyerly Preparation Score of 9. The cecal time was 10 minutes. Impression: 1. Diminutive descending colon polyp 2. Left-sided diverticulosis 3. Grade 1 internal hemorrhoids Plan: I will follow up the polyp pathology and recommend repeat colonoscopy again in 7-10 years based upon the polyp histology. I would encourage continuation of a fiber bowel regimen on a long-term daily maintenance basis.
== END 2019-10-30 12:05 | disposition home or self-care (01) ==
LOC: OUTP 08:58
PROVIDERS: PCP Family Medicine; Visit Provider Internal Medicine Gastroenterology
PROC: 0DJD8ZZ Inspection of Lower Intestinal Tract, Via Natural or Artificial Opening Endoscopic (ICD-10-PCS; CPT 45378; principal; 2019-10-30 10:00)
DX: Z12.11 Encounter for screening for malignant neoplasm of colon (principal); K63.5 Polyp of colon; K57.30 Diverticulosis of large intestine without perforation or abscess without bleeding; K64.0 First degree hemorrhoids; K21.9 Gastro-esophageal reflux disease without esophagitis; I25.10 Atherosclerotic heart disease of native coronary artery without angina pectoris; D64.9 Anemia, unspecified; M19.90 Unspecified osteoarthritis, unspecified site; I34.1 Nonrheumatic mitral (valve) prolapse; Z82.49 Family history of ischemic heart disease and other diseases of the circulatory system; Z88.0 Allergy status to penicillin; Z88.2 Allergy status to sulfonamides; Z96.641 Presence of right artificial hip joint
CPT/HCPCS: 45385

== ENCOUNTER 2019-11-22 18:20 | Inpatient (IN) | payer BC, SELFPAY ==
[2019-11-22] VITALS (8 sets, daily range): BP systolic 126–160; BP diastolic 57–79; PULSE 50–71; RESP 16–20; TEMP 36.9–37.2; O2SAT 96–99; BMI 34.1; BMI 34.9
--- NOTE | 2019-11-22 18:50 | XR_ITS ---
PROCEDURE: XR CHEST 2V CLINICAL HISTORY: chest pain, nonsmoker COMPARISON: CR XR CHEST 2V from 08/10/2019 FINDINGS: The cardiomediastinal silhouette and pulmonary vascularity are within normal limits. The lungs are clear without infiltrates, suspicious nodules, or pleural effusions. No acute bony abnormalities. There is a small to moderate-sized hiatal hernia is seen through the cardiac shadow unchanged in size from the previous chest film. IMPRESSION: No acute findings. Dictated by: Dr. Dank Wilson MD 11/22/2019 19:28 Dr. Dank Wilson MD in [place] 11/22/2019 19:28
--- NOTE | 2019-11-22 18:50 | ECG_ITS ---
APPROVED REPORT Exam: Resting ECG HR:57 bpm ECG Measurements Heart Rate 57 AXES VA 156 P 20 QRSd 84 QRS -4 QT 412 T 6 QTc 401 <Conclusion> Sinus bradycardia Voltage criteria for left ventricular hypertrophy Abnormal ECG Electronically signed by : Juventino Dangelo, 11/23/2019 09:59:27
--- NOTE | 2019-11-22 19:02 | CT_ITS ---
PROCEDURE: CT ABDOMEN PELVIS W CON CLINICAL INDICATION: abd pain Epigastric pain COMPARISON: No exams were available for comparison TECHNIQUE: IV Contrast: 75ML OPTIRAY 350 Oral Contrast None Axial images obtained with sagittal and coronal reformats. All CT scans at the facility use one or more dose reduction, viz: automated exposure control, ma/kV adjustment per patient size (including targeted exams where dose is matched to indication, i.e. head), or iterative reconstruction technique. FINDINGS: LOWER THORAX: Calcified granulomas are present in the left lower lobe 2 additional small noncalcified opacities. ABDOMEN & PELVIS: The gallbladder is distended with pericholecystic fluid and stranding of the right upper quadrant. Acute cholecystitis is considered. The liver, spleen and adrenal glands are unremarkable. There is a small hernia. There is prominence the confluence of the superior mesenteric and portal veins measuring 3.6 cm AP. Pancreatic head is somewhat with minimal stranding of the at this region. No renal or ureteral calculi. Unremarkable spleen. No intestinal obstruction or free air. No evidence of appendicitis. There is colonic diverticulosis but no evidence of diverticulitis. Artifact is present from right hip prosthesis. No acute bony findings. IMPRESSION: 1. Distended gallbladder with pericholecystic fluid and stranding of the fat in the right upper quadrant. Acute cholecystitis is considered. Please correlate with clinical parameters. Ultrasound may provide further evaluation. 2. Prominent pancreatic head with minimal stranding of the peripancreatic fat. Mild pancreatitis is also considered. 3. Dilated confluence of the superior mesenteric vein, splenic vein and portal vein measuring up to 3 cm consistent with a varix of the portal vein Dictated by: Jarek Hendricks MD 11/23/2019 06:50 Jarek Hendricks MD in [place] 11/23/2019 06:50
[2019-11-22 19:22] LABS: Basophils % 0.3 % (0.1-2.0); Eosinophils # 0.1 K/mm3 (0.0-0.4); Eosinophils % 0.8 % (0.1-12.0); Hematocrit 44.2 % (37.0-47.0); Lymphocytes # 1.3 K/mm3 (0.7-4.5); Lymphocytes % 16.1 % (10-50); Mean Corpuscular Hemoglobin 30.1 pg (27.0-31.2); Mean Corpuscular Volume 88.6 fl (81-99); Mean Platelet Volume 7.9 fl (7.4-10.4); Monocytes # 0.5 K/mm3 (0.1-1.0); Monocytes % 6.2 % (1.7-9.3); Neutrophils # 6.3 K/mm3 (1.8-7.8); Neutrophils % 76.6 % (37.0-80.0); Platelet Count 204 K/mm3 (142-424); Red Blood Count 4.98 M/mm3 (4.20-5.40); Red Cell Distribution Width 12.6 % (11.5-17.5); White Blood Count 8.3 K/mm3 (4.8-10.8)
--- NOTE | 2019-11-22 19:42 | PC.NURSE ---
po contrast given at 1939.
[2019-11-22 19:45] LABS: Alanine Aminotransferase 572 U/L (12-78); Albumin/Globulin Ratio 1.3 (1.1-1.8); Alkaline Phosphatase 98 U/L (38-126); Anion Gap 12.1 mEq/L (5-15); Aspartate Amino Transferase 730 U/L (14-36); Bilirubin,Total 2.5 mg/dl (0.2-1.3); Blood Urea Nitrogen 12 mg/dl (7-17); Calcium 9.4 mg/dl (8.4-10.2); Carbon Dioxide 24 mmol/L (22.0-30.0); Chloride 105 mmol/L (98-107); Creatinine Clearance Estimated 129 mL/min (50-200); Estimated Glomerular Filt Rate 86 ml/min (>60); GFR (African American) 104 ML/MIN (>60); Globulin 3.2 g/dL (1.3-3.2); Glucose 113 mg/dl (74-100); Potassium 4.1 mmoL/L (3.5-5.1); Sodium 137 mmol/L (136-145); Total Protein,Serum 7.2 g/dl (6.3-8.2)
--- NOTE | 2019-11-22 19:58 | PC.NURSE ---
awre of lab results
--- NOTE | 2019-11-22 19:59 | HMH.EDNVD ---
ED Disposition Clinical Impression: Obesity (BMI 30.0-34.9) Pancreatitis, acute Qualifiers: Pancreatitis type: biliary Acute pancreatitis complication: no infection or necrosis Qualified Code(s): K85.10 - Biliary acute pancreatitis without necrosis or infection Disposition: Admitted As Inpatient Condition on Discharge: Good Instructions: DI for Acute Abdomen Referrals: Jatinder Qureshi MD [Primary Care Provider] - - Critical Care Critical Care Time: No Attestation: On 11/22/19, the high probability of a clinically significant, sudden or life threatening deterioration of the following system(s) required my full and direct attention, intervention and personal management. The time I documented below is in addition to time spent performing reported procedures but includes the following listed in this critical care notation. Medical Decision Making - Medical Records Medical records reviewed: Yes: I reviewed the patient's medical records. - [place] Inquiry Pt receiving controlled substance: No Vital Signs: 11/22/19 18:45 11/22/19 19:29 11/22/19 20:09 Temperature 98.9 F Temperature Source Oral Pulse Rate [Right Radial] 71 53 L 62 Respiratory Rate 17 Blood Pressure [Right Arm] 160/79 H 160/79 H 160/79 H Blood Pressure Mean [Right Arm] 106 106 106 Blood Pressure Source [Right Arm] Automatic Cuff Automatic Cuff Blood Pressure Position [Right Arm] Sitting Sitting 02 Sat by Pulse Oximetry 98 99 98 Oxygen Delivery Method Room Air Room Air Room Air 11/22/19 21:21 Temperature Temperature Source Pulse Rate [Right Radial] 64 Respiratory Rate 16 Blood Pressure [Right Arm] 147/77 H Blood Pressure Mean [Right Arm] 100 Blood Pressure Source [Right Arm] Automatic Cuff Blood Pressure Position [Right Arm] Sitting 02 Sat by Pulse Oximetry 98 Oxygen Delivery Method Room Air - Lab Data Lab results reviewed: Yes: I reviewed the patient's lab results. Lab Results 11/22/19 19:10: WBC 8.3, RBC 4.98, Hgb 15.0, Hct 44.2, MCV 88.6, MCH 30.1, MCHC 34.0, RDW 12.6, Plt Count 204, MPV 7.9, Neut % (Auto) 76.6, Lymph % (Auto) 16.1, [place] % (Auto) 6.2, Eos % (Auto) 0.8, Baso % (Auto) 0.3, Neut # (Auto) 6.3, Lymph # (Auto) 1.3, [place] # (Auto) 0.5, Eos # (Auto) 0.1, Baso # (Auto) 0.0 11/22/19 19:10: Sodium 137, Potassium 4.1, Chloride 105, Carbon Dioxide 24, Anion Gap 12.1, BUN 12, Creatinine 0.70, Estimated Creat Clear 129, Estimated GFR 86, Est GFR ( Amer) 104, Glucose 113 H, Calcium 9.4, Total Bilirubin 2.5 H, AST 730 H*, ALT 572 H*, Alkaline Phosphatase 98, Troponin I < 0.01, Total Protein 7.2, Albumin 4.0, Globulin 3.2, Albumin/Globulin Ratio 1.3, Amylase 3501 H*, Lipase 74692 H Result diagrams: 11/22/19 19:10 11/22/19 19:10 Orders (Tests/Meds): ED MEDICATIONS Generic Name Dose Route Start Last Admin Trade Name Freq PRN Reason Stop Dose Admin Sodium Chloride 1,000 mls @ 999 mls/hr 11/22/19 21:00 11/22/19 21:02 Sod Chlor 0.9% 1000ml Bag IV 11/22/19 22:00 999 mls/hr .Q1H1M VEENA Administration Sodium Chloride 8 ml 11/22/19 20:51 Sodium Chloride 0.9% 10ml Vial IV 12/22/19 20:50 NEEDED PRN dilute pepcid Discontinued Medications Generic Name Dose Route Start Last Admin Trade Name Freq PRN Reason Stop Dose Admin Diatrizoate Meglum/Diatrizoate Sod 30 ml 11/22/19 19:02 11/22/19 19:39 Gastrografin 66%-10% 30ml PO 11/22/19 19:03 30 ml ONCE ONE Administration Famotidine 20 mg 11/22/19 20:51 11/22/19 21:01 Pepcid 20mg/2ml Vial IV 11/22/19 20:52 20 mg ONCE ONE Administration Ioversol 75 ml 11/22/19 20:43 11/22/19 20:44 Rad-Optiray 350 100ml Vial IV 11/22/19 20:44 75 ml ONCE ONE Administration Protocol Metoclopramide HCl 10 mg 11/22/19 20:51 08/16/20 21:01 Reglan 10mg/2ml Vial IVP 11/22/19 20:52 10 mg ONCE ONE Administration Sodium Chloride 10 ml 11/22/19 20:43 11/22/19 20:44 Rad-Saline Flush 10ml Syringe IV 11/22/19 20:44 10
--- NOTE | 2019-11-22 19:59 | PC.NURSE ---
spoke with mayra about time to get patient being 2015
[2019-11-22 20:01] LABS: Troponin I < 0.01 ng/ml (0.00-0.034)
[2019-11-22 20:11] LABS: Amylase 3501 U/L (30-110)
[2019-11-22 20:26] LABS: Lipase 30668 U/L (23-300)
[2019-11-22 21:41] LABS: Adenovirus,PCR Not Detected (NotDetected); Bordetella Pertussis Not Detected (NotDetected); Chlamydophila Pneumoniae, PCR Not Detected (NotDetected); Coronavirus 19, PCR Not Detected (NotDetected); Coronavirus 229E Not Detected (NotDetected); Coronavirus NL63 Not Detected (NotDetected); Coronavirus OC43 Not Detected (NotDetected); Coronovirus HKU1,PCR Not Detected (NotDetected); Human Metapneumovirus Not Detected (NotDetected); Influenza A, PCR Not Detected (NotDetected); Influenza AH1, 2009 Not Detected (NotDetected); Influenza AH1, PCR Not Detected (NotDetected); Influenza AH3,PCR Not Detected (NotDetected); Influenza B, PCR Not Detected (NotDetected); Mycoplasma Pneumoniae, PCR Not Detected (NotDetected); Parainfluenza 1, PCR Not Detected (NotDetected); Parainfluenza 2, PCR Not Detected (NotDetected); Parainfluenza 3, PCR Not Detected (NotDetected); Parainfluenza 4, PCR Not Detected (NotDetected); Respiratory Syncytial Virus Not Detected (NotDetected); Rhinovirus/Enterovirus Not Detected (NotDetected)
[2019-11-22 22:17] LABS: Microscopic, Urine URINE MICROSCOPIC (MICROSCOPIC)
[2019-11-22 22:19] LABS: Appearance,Urine CLEAR (Clear); Blood, Urine 1+ (Negative); Color,Urine YELLOW (Yellow); Glucose,Urine (UA) Negative (Negative); Ketones,Urine Negative (Negative); Leukocyte Esterase,Urine Negative (Negative); Nitrate,Urine Negative (Negative); Protein,Urine Negative (Negative); Urobilinogen,Urine 0.2 EU/dl (0.2)
[2019-11-22 22:22] LABS: Bilirubin,Urine 1+ (Negative)
[2019-11-22 22:27] LABS: Amorphous Sediment,Urine Trace /lpf
--- NOTE | 2019-11-22 23:28 | PC.NURSE ---
call for bed placement
--- NOTE | 2019-11-22 23:43 | PC.NURSE ---
patient up to floor via wheelchair per staff.
[2019-11-23] VITALS (16 sets, daily range): BP systolic 101–132; BP diastolic 53–80; PULSE 52–77; RESP 12–18; TEMP 36.4–37.1; O2SAT 93–97; BMI 34.9
--- NOTE | 2019-11-23 03:05 | PC.NURSE ---
Pt has rested with eyes closed since arriving to unit from ER. Alert & Oriented x4. Upon admission, she stated to this RN that the meds she received in the ER adequately relieved her pain. Denies pain thus far this shift. Describes her previous pain to be in her midepigastric region. Denies pain with light palpation of lower abdomen. Urine noted clear and yellow in color. States she had a large BM while in the ER this shift. Bowel sounds noted active upon auscultation. Remains NPO this shift. Ambulates independently in room with no assist, tolerates well. Tolerates RA well with no c/o soa. Bilateral breath sounds noted clear t/o. Refused teds. VSS. Remains safe. Call light within reach. Will continue to monitor.
[2019-11-23 06:21] LABS: Chloride 110 mmol/L (98-107); Sodium 139 mmol/L (136-145)
[2019-11-23 06:22] LABS: Basophils % 0.2 % (0.1-2.0); Eosinophils # 0.1 K/mm3 (0.0-0.4); Eosinophils % 1.3 % (0.1-12.0); Hematocrit 40.3 % (37.0-47.0); Hemoglobin 13.5 g/dL (12.2-16.2); Lymphocytes # 1.6 K/mm3 (0.7-4.5); Lymphocytes % 21.5 % (10-50); Mean Corpuscular HGB Conc 33.6 g/dL (31.8-35.4); Mean Corpuscular Hemoglobin 30.3 pg (27.0-31.2); Mean Corpuscular Volume 90.2 fl (81-99); Mean Platelet Volume 8.4 fl (7.4-10.4); Monocytes # 0.4 K/mm3 (0.1-1.0); Monocytes % 5.5 % (1.7-9.3); Neutrophils # 5.2 K/mm3 (1.8-7.8); Neutrophils % 71.5 % (37.0-80.0); Platelet Count 173 K/mm3 (142-424); Potassium 3.7 mmoL/L (3.5-5.1); Red Blood Count 4.47 M/mm3 (4.20-5.40); Red Cell Distribution Width 12.8 % (11.5-17.5); White Blood Count 7.3 K/mm3 (4.8-10.8)
[2019-11-23 06:24] LABS: Alanine Aminotransferase 496 U/L (12-78); Alkaline Phosphatase 85 U/L (38-126); Anion Gap 9.7 mEq/L (5-15); Aspartate Amino Transferase 419 U/L (14-36); Bilirubin,Indirect 1.2 mg/dL (0.0-0.9); Bilirubin,Total 1.2 mg/dl (0.2-1.3); Bilirubin,Unconjugated 1.1 mg/dL (0.0-1.1); Blood Urea Nitrogen 9 mg/dl (7-17); Calcium 8.7 mg/dl (8.4-10.2); Carbon Dioxide 23 mmol/L (22.0-30.0); Creatinine Clearance Estimated 153 mL/min (50-200); Estimated Glomerular Filt Rate 103 ml/min (>60); GFR (African American) 124 ML/MIN (>60); Glucose 96 mg/dl (74-100)
[2019-11-23 06:25] LABS: Albumin Level 3.4 g/dl (3.5-5.0); Chol/HDL Ratio 2.4 (1-3.5); Cholesterol 119 mg/dl (140-200); HDL Cholesterol 49 mg/dl (40-60); Total Protein,Serum 6.4 g/dl (6.3-8.2); Triglycerides 48 mg/dl (30-150); VLDL Cholesterol 10 mg/dL (0-40)
[2019-11-23 06:36] LABS: Direct LDL Cholesterol 50.78 mg/dL (100-129)
[2019-11-23 06:42] LABS: Lipase 8280 U/L (23-300)
--- NOTE | 2019-11-23 07:16 | HMH.HP ---
*Admission Date: 11/23/19 *Chief complaint: Epigastric abdominal pain *History of present illness: 59-year-old female with history of a hiatal hernia presented to the emergency department after approximately 16 hours of epigastric abdominal pain. Pain began at 3:00 in the morning on Saturday, November 21. Pain is described as a pressure sensation in the epigastrium that radiated through to the shoulder blades. Patient took simethicone which had worked for her in the past but was ineffective this time. As pain increased to an 8 out of 10 patient finally decided to come to the emergency department. She did have associated nausea and diaphoresis but no vomiting. Patient's last intake was a piece of pie around 6 PM on Saturday evening. Work-up in the emergency department was consistent with gallstone pancreatitis. Patient was admitted with IV fluids and made n.p.o. This morning the patient reports minimal pain and no nausea. Ultrasound and surgical consult have been ordered Of note patient was admitted to the hospital in August of this year with a similar complaint with attention given to her cardiac status. Cardiac work-up was negative. She ultimately followed up with gastroenterology over her hiatal hernia. Patient reports since that hospitalization she has had 3-4 brief episodes of the same epigastric pain and pressure that would only last an hour and usually was relieved with simethicone. [facility] History I have reviewed the patient's past medical history: Yes Medical History: Reports:: Gastroesophageal Reflux Disease(GERD) Denies:: Cancer, Diabetes Mellitus Type 1, Diabetes Mellitus Type 2, Internal Pacemaker, MRSA, Seizures *Have you ever received a pneumonia vaccine?: No *Have you received a flu vaccine this season?: No Other Medical History: Reports: Anemia, Arthritis, Other (mitral valve prolapse) Laterality Cases: Left: Other, Right: Total Hip Replacement Other Surgeries: Yes: Colonoscopy, EGD, Tubal Ligation, Other (wrist). No: Pacemaker Amputation: No Fractures: No - *Social History Last grade of school completed: Advanced degree Smoking Status: Never smoker # Packs/Day (cigarettes): 0 #Yrs smoked (if former smoker): 0 Alcohol Intake: current Alcohol Intake Frequency:: holidays/special occasions only Substance Use Type: denies use *Occupational Status:: retired Housing: house Household Members: spouse *Travel in the last 8 weeks: Inside the [place] Family Hx:: Hypertension Review of Systems - Review of Systems Review of systems:: pertinent systems reviewed and negative unless documented below - *Neurologic Denies headache(s), Denies seizure-like activity Meds Home Medications Medication Instructions Recorded Confirmed Type omeprazole 20 mg capsule,delayed 20 mg PO DAILY 90 Days #90 09/09/17 11/22/19 History release Allergies Allergy/AdvReac Type Severity Reaction Status Date / Time Penicillins [PENICILLINS] Allergy Intermediate I-RASH Verified 11/22/19 18:50 Sulfa (Sulfonamide Allergy Intermediate I-HIVES Verified 11/22/19 18:50 Antibiotics) [SULFA (SULFONAMIDE ANTIBIOTICS)] Exam Vital signs and Labs for Last 24 Hours: Temp Pulse Resp BP Pulse Ox 98.8 F 77 18 127/75 95 11/23/19 04:00 11/23/19 04:00 11/23/19 04:00 11/23/19 04:00 11/23/19 04:00 Laboratory Results - last 24 hr 11/22/19 19:10: WBC 8.3, RBC 4.98, Hgb 15.0, Hct 44.2, MCV 88.6, MCH 30.1, MCHC 34.0, RDW 12.6, Plt Count 204, MPV 7.9, Neut % (Auto) 76.6, Lymph % (Auto) 16.1, [place] % (Auto) 6.2, Eos % (Auto) 0.8, Baso % (Auto) 0.3, Neut # (Auto) 6.3, Lymph # (Auto) 1.3, [place] # (Auto) 0.5, Eos # (Auto) 0.1, Baso # (Auto) 0.0 11/22/19 19:10: Sodium 137, Potassium 4.1, Chloride 105, Carbon Dioxide 24, Anion Gap 12.1, BUN 12, Creatinine 0.70, Estimated Creat Clear 129, Estimated GFR 86, Est GFR ( Amer) 104, Glucose 113 H, Calcium 9.4, Total Bilirubin 2.5 H, AST 730 H*, ALT 572 H*, Alkaline Phosphatase 98, Tr
--- NOTE | 2019-11-23 08:00 | US_ITS ---
PROCEDURE: US GALLBLADDER CLINICAL INDICATION: abd pain Abdominal pain, right upper quadrant pain, abnormal CT scan COMPARISON: CT CT ABDOMEN PELVIS W CON from 11/22/2019 FINDINGS: Pancreas: Unremarkable/Not well seen Liver: Unremarkable. There is appropriate direction of blood flow within a non dilated portal vein. Right kidney: Unremarkable appearing. No hydronephrosis. Gallbladder: The gallbladder is distended and filled with stones and debris. There is mild gallbladder wall thickening measuring up to 7 mm. Common bile duct is normal at 4 mm. There is aneurysmal dilatation of the proximal aspect of the portal vein at 3.3 cm. There is appropriate direction of blood flow within the portal vein. IMPRESSION: 1. Distended gallbladder with cholelithiasis and gallbladder wall thickening. No obvious pericholecystic fluid. 2. Aneurysmal dilatation of the portal vein. Dictated by: Jarek Hendricks MD 11/23/2019 10:05 Jarek Hendricks MD in [place] 11/23/2019 10:05
--- NOTE | 2019-11-23 08:06 | PC.NURSE ---
Called web applications administrator surgeon, Dr. Witt for consult on this pt.
--- NOTE | 2019-11-23 08:16 | HMH.PHAVTE ---
[facility] Pharmacy VTE Monitoring - Patient Demographics Admission date: 11/22/19 Report Date: 11/23/19 Time: 08:16 Allergies/Adverse Reactions: Patient Allergies Penicillins [PENICILLINS] Allergy (Intermediate, Verified 11/22/19 18:50) I-RASH Sulfa (Sulfonamide Antibiotics) [SULFA (SULFONAMIDE ANTIBIOTICS)] Allergy (Intermediate, Verified 11/22/19 18:50) I-HIVES Height: 1.65 m Weight: 95.254 kg Patient Problems: Current Active Problems Obesity (BMI 30.0-34.9) (Acute) Pancreatitis, acute (Acute) Acute gallstone pancreatitis (Acute) BMI over 35 (Acute) Gastroesophageal reflux disease (Acute) - VTE Risk Labs: VTE Related Lab Results Hgb 13.5 g/dL (12.2-16.2) 11/23/19 06:08 Hct 40.3 % (37.0-47.0) 11/23/19 06:08 Plt Count 173 K/mm3 (142-424) 11/23/19 06:08 BUN 9 mg/dl (7-17) 11/23/19 06:08 Creatinine 0.60 mg/dl (0.52-1.04) 11/23/19 06:08 Estimated Creat Clear 153 mL/min (50-200) 11/23/19 06:08 Was VTE Risk Assessment Performed: Yes VTE Score: 5 VTE Risk Level: Low Risk - Prophylaxis VTE Prophylaxis Ordered?: Yes Types of VTE Prophylaxis: TEDS Knee High Location of Applied Device: Bilateral Lower Extremeties - VTE Diagnosis Confirmed Treatment or plan recommended: Continue Current Treatment
--- NOTE | 2019-11-23 08:18 | HMH.PHAINT ---
MEDICATION RECONCILIATION COMPLETED ON PATIENT USING EXTERNAL FILL HISTORY FROM PHARMACY. -MARIAELENA KINCAID, MEGAND
--- NOTE | 2019-11-23 08:27 | HMH.GSCON ---
*Admission Date: 11/22/19 *Reason for consult:: Gallstones, Pancreatitis *History of present illness: Patient is a very pleasant 59-year-old female with history of hiatal hernia. She has undergone evaluation relatively recently with upper endoscopy and colonoscopy by Dr. Franklin Palma. Yesterday morning she had developed high epigastric pain with radiation around bilateral upper quadrants and into her back. This became progressively severe throughout the day and she presented to the emergency department in the evening of 11/22/2019. Evaluation in the emergency department, based on laboratory findings and CT findings, was consistent with pancreatitis with gallstones. She was admitted for inpatient management and surgical consultation. At this time the patient does state that she feels better. She is scheduled for gallbladder ultrasound this morning. Review of Systems - Review of Systems Review of systems:: pertinent systems reviewed and negative unless documented below - *Neurologic Denies headache(s), Denies seizure-like activity [facility] History I have reviewed the patient's past medical history: Yes Medical History: Reports:: Gastroesophageal Reflux Disease(GERD), Valvular Heart Disease Denies:: Cancer, Diabetes Mellitus Type 1, Diabetes Mellitus Type 2, Internal Pacemaker, MRSA, Seizures *Have you ever received a pneumonia vaccine?: No *Have you received a flu vaccine this season?: No Other Medical History: Reports: Anemia, Arthritis, Other (mitral valve prolapse) Laterality Cases: Left: Other, Right: Total Hip Replacement Other Surgeries: Yes: Colonoscopy, EGD, Tubal Ligation, Other (wrist). No: Pacemaker Amputation: No Fractures: No - *Social History Last grade of school completed: Advanced degree Smoking Status: Never smoker # Packs/Day (cigarettes): 0 #Yrs smoked (if former smoker): 0 Alcohol Intake: current Alcohol Intake Frequency:: holidays/special occasions only Substance Use Type: denies use *Occupational Status:: retired Housing: house Household Members: spouse *Travel in the last 8 weeks: Inside the [place] Family Hx:: Hypertension Meds Home Medications Medication Instructions Recorded Confirmed Type omeprazole 20 mg capsule,delayed 20 mg PO DAILY 90 Days #90 09/09/17 11/22/19 History release Allergies Allergy/AdvReac Type Severity Reaction Status Date / Time Penicillins [PENICILLINS] Allergy Intermediate I-RASH Verified 11/22/19 18:50 Sulfa (Sulfonamide Allergy Intermediate I-HIVES Verified 11/22/19 18:50 Antibiotics) [SULFA (SULFONAMIDE ANTIBIOTICS)] Exam Vital signs and Labs for Last 24 Hours: Temp Pulse Resp BP Pulse Ox 98.1 F 59 L 16 112/61 97 11/23/19 07:20 11/23/19 07:20 11/23/19 07:20 11/23/19 07:20 11/23/19 07:20 Laboratory Results - last 24 hr 11/22/19 19:10: WBC 8.3, RBC 4.98, Hgb 15.0, Hct 44.2, MCV 88.6, MCH 30.1, MCHC 34.0, RDW 12.6, Plt Count 204, MPV 7.9, Neut % (Auto) 76.6, Lymph % (Auto) 16.1, [place] % (Auto) 6.2, Eos % (Auto) 0.8, Baso % (Auto) 0.3, Neut # (Auto) 6.3, Lymph # (Auto) 1.3, [place] # (Auto) 0.5, Eos # (Auto) 0.1, Baso # (Auto) 0.0 11/22/19 19:10: Sodium 137, Potassium 4.1, Chloride 105, Carbon Dioxide 24, Anion Gap 12.1, BUN 12, Creatinine 0.70, Estimated Creat Clear 129, Estimated GFR 86, Est GFR ( Amer) 104, Glucose 113 H, Calcium 9.4, Total Bilirubin 2.5 H, AST 730 H*, ALT 572 H*, Alkaline Phosphatase 98, Troponin I < 0.01, Total Protein 7.2, Albumin 4.0, Globulin 3.2, Albumin/Globulin Ratio 1.3, Amylase 3501 H*, Lipase 66077 H 11/22/19 21:30: Chlamy pneumoniae PCR Not detected, Adenovirus (PCR) Not detected, B. pertussis DNA (PCR) Not detected, Coronavirus OC43 (PCR) Not detected, Coronavirus HKU1 (PCR) Not detected, Coronavirus 229E (PCR) Not detected, COVID-19 PCR Not detected, Coronavirus NL63 (PCR) Not detected, Human Metapneumovir PCR Not detected, Influenza A (H1) PCR Not detected, Influ A (H1N1/09) PCR Not detected, In
--- NOTE | 2019-11-23 11:19 | FL_ITS ---
PROCEDURE: FL ERCP CLINICAL INDICATION: pancreatitis COMPARISON: No exams were available for comparison FINDINGS: Fluoroscopy time: 1 minutes and 15 seconds Two images are submitted. The common bile duct is normal in caliber without obvious stone. There is faint visualization the pancreatic duct which is normal in caliber. IMPRESSION: No radiographic evidence of choledocholithiasis. Dictated by: Jarek Hendricks MD 11/25/2019 06:27 Jarek Hendricks MD in [place] 11/25/2019 06:27
--- NOTE | 2019-11-23 11:54 | HMH.CONS ---
*Admission Date: 11/22/19 *Reason for consult:: Acute pancreatitis *History of present illness: This is a 59-year-old female with a past medical history of a large paraesophageal hernia. She was recently seen by Dr. Palma for screening colonoscopy 10/2019 but also had a diagnostic EGD for noncardiac chest pain 09/18/2019. Dr. Palma found a 4 cm hiatal hernia/paraesophageal hernia, nonerosive GERD with mild esophageal dysmotility, cricopharyngeal spasm status post dilation and linear gastropathy. Patient has been on MiraLAX and Konsyl and omeprazole regularly. She has had great improvement of her noncardiac chest pain since then. Louie has discussed a paraesophageal hernia repair at with the patient previously. However, she presented to the ER over the weekend with complaints of a sense of fullness and epigastric pain that she initially associated with her hiatal hernia. On further investigation, the patient had a lipase over 30,000 with an AST of 30 and an ALT of 572 on arrival. She also had a CT scan consistent with acute pancreatitis and acute cholecystitis. Also showed her moderately large hernia and a distal esophageal stricture. She underwent esophageal dilation during her EGD in September and reports no dysphagia currently. Dr. Witt was consulted and felt like this may be choledocholithiasis and recommended a gastroenterology consult. On exam this morning, the patient feels improved from her initial admission. She reports some nausea that is greatly improved but no vomiting some mildly loose stool. She still has some epigastric fullness and discomfort but is much improved as well. She did undergo right upper quadrant ultrasound that showed a normal common bile duct 4 mm, distended gallbladder with cholelithiasis and an incidental finding of an aneurysmal dilatation of the portal vein. Since admission, the patient has been n.p.o. since yesterday, has been receiving IV fluids, bilirubin is at 1.2, AST is decreased to 419, ALT down to 496, alk phos is within normal range at 85. Lipase is decreased down to 8280. Triglycerides are normal at 48, she is not an alcohol drinker, she has not had any medication changes except that she recently stopped her progestin and hormone patch. [facility] History I have reviewed the patient's past medical history: Yes Medical History: Reports:: Gastroesophageal Reflux Disease(GERD), Valvular Heart Disease Denies:: Cancer, Diabetes Mellitus Type 1, Diabetes Mellitus Type 2, Internal Pacemaker, MRSA, Seizures *Have you ever received a pneumonia vaccine?: No *Have you received a flu vaccine this season?: No Other Medical History: Reports: Anemia, Arthritis, Other (mitral valve prolapse) Laterality Cases: Left: Other, Right: Total Hip Replacement Other Surgeries: Yes: Colonoscopy, EGD, Tubal Ligation, Other (wrist). No: Pacemaker Amputation: No Fractures: No - *Social History Last grade of school completed: Advanced degree Smoking Status: Never smoker # Packs/Day (cigarettes): 0 #Yrs smoked (if former smoker): 0 Alcohol Intake: current (rare) Alcohol Intake Frequency:: holidays/special occasions only Substance Use Type: denies use *Occupational Status:: retired Housing: house Household Members: spouse *Travel in the last 8 weeks: Inside the [facility] Family Hx:: Hypertension Review of Systems - Review of Systems Review of systems:: pertinent systems reviewed and negative unless documented below - Constitutional Denies anorexia, Denies body ache(s), Denies chills, Denies fever(s), Denies lack of energy - Eyes Denies blurry vision, Denies pain - ENT Denies abnormal hearing, Denies dizziness, Denies difficulty swallowing, Denies hearing loss, Denies hoarseness, Denies lip swelling, Denies mouth lesions - *Cardiovascular Denies chest pain, Denies chest pain with activity, Denies shortness of breath, Denies generalized swelling, Denies irregular heart rhythm - *Respiratory Denies chest congestion, Patric
--- NOTE | 2019-11-23 14:26 | HMH.ANESCL ---
[facility] Anesthesia Checklist - Structural Data Admitted From: Inpatient Planned Operative Procedure/s: ercp Consent for Planned Operative Procedure(s) Verified: Yes - Additional verifications Anesthesia Reactions: No - Airway Assessment C-Spine Mobility Assessed: Yes TMJ Mobility Assessed: Yes Dentition: Good Dentition - Neurological Assessment Level of Consciousness: Awake, Alert, Appropriate - Anesthesia Plan Anesthesia Risk discussed: Yes Anesthesia Plan: Verified ASA Class: II Anesthesia Type: MAC [facility] History I have reviewed the patient's past medical history: Yes Medical History: Reports:: Gastroesophageal Reflux Disease(GERD), Valvular Heart Disease Denies:: Cancer, Diabetes Mellitus Type 1, Diabetes Mellitus Type 2, Internal Pacemaker, MRSA, Seizures *Have you ever received a pneumonia vaccine?: No *Have you received a flu vaccine this season?: No Other Medical History: Reports: Anemia, Arthritis, Other (mitral valve prolapse) Anesthesia experience/problems:: none Laterality Cases: Left: Other, Right: Total Hip Replacement Other Surgeries: Yes: Colonoscopy, EGD, Tubal Ligation, Other (wrist). No: Pacemaker Amputation: No Fractures: No - *Social History Last grade of school completed: Advanced degree Smoking Status: Never smoker # Packs/Day (cigarettes): 0 #Yrs smoked (if former smoker): 0 Alcohol Intake: current (rare) Alcohol Intake Frequency:: holidays/special occasions only Substance Use Type: denies use *Occupational Status:: retired Housing: house Household Members: spouse *Travel in the last 8 weeks: Inside the [facility] Family Hx:: Hypertension
--- NOTE | 2019-11-23 15:30 | HMH.PROC ---
[facility] Procedure Note Procedure Note:: ERCP procedure Report: Endoscopic retrograde cholangiopancreatography with biliary sphincterotomy and balloon extraction Endoscopist: Franklin Palma II, MD Referring Physician: Jatinder Qureshi MD Date of Procedure: November 23, 2019 Equipment: Olympus 180 side viewing endoscope duodenoscope Sedation: MAC sedation Indication: Mrs. Finnegan is a 59-year-old female with gallstone pancreatitis presumably a with probable choledocholithiasis. She does have a past medical history of a large paraesophageal hernia. She was recently seen by me for screening colonoscopy 10/2019 but also had a diagnostic EGD for noncardiac chest pain 09/18/2019. I did find a 4 cm hiatal hernia/paraesophageal hernia, nonerosive GERD with mild esophageal dysmotility, cricopharyngeal spasm status post dilation and linear gastropathy. The patient has been on MiraLAX and Konsyl and omeprazole regularly. She has had great improvement of her noncardiac chest pain since then. I had discussed a paraesophageal hernia repair at with the patient previously. However, she presented to the ER over the weekend with complaints of a sense of fullness and epigastric pain that she initially associated with her hiatal hernia. On further investigation, the patient had a lipase over 30,000 with an AST of 30 and an ALT of 572 on arrival. She also had a CT scan consistent with acute pancreatitis and acute cholecystitis. Also showed her moderately large hernia and a distal esophageal stricture. She underwent esophageal dilation during her EGD in September and reports no dysphagia currently. Dr. Witt was consulted and felt like this may be choledocholithiasis and recommended a gastroenterology consult. On exam this morning, the patient feels improved from her initial admission. She reports some nausea that is greatly improved but no vomiting some mildly loose stool. She still has some epigastric fullness and discomfort but is much improved as well. She did undergo right upper quadrant ultrasound that showed a normal common bile duct 4 mm, distended gallbladder with cholelithiasis and an incidental finding of an aneurysmal dilatation of the portal vein. Since admission, the patient has been n.p.o. since yesterday, has been receiving IV fluids, bilirubin is at 1.2, AST is decreased to 419, ALT down to 496, alk phos is within normal range at 85. Lipase is decreased down to 8280. Triglycerides are normal at 48, she is not an alcohol drinker, she has not had any medication changes except that she recently stopped her progestin and hormone patch. Procedure: Prior to the procedure, a history and physical exam was performed, and patient's medications and allergies were reviewed. The risks, benefits and alternatives of the sedation and procedure were discussed with the patient. All questions were answered and informed consent was obtained. The patient was brought to the fluoroscopic radiology room. Patient identification and proposed procedure were verified by the physician and the nurse. The patient was placed in a swimmer's position between left lateral decubitus and prone position and the scope was passed under direct vision. Throughout the procedure, the patient's blood pressure, pulse, and oxygen saturations were monitored continuously. The ERCP was accomplished without difficulty. The patient tolerated the procedure well. Findings: The side-viewing endoscope was passed directly into the upper esophagus and advanced to the second portion of the duodenum. The patient did have some esophageal dysmotility as well as some gastric reactive gastropathy. The ampulla was well visualized. Both the common bile duct and pancreatic duct were freely cannulated. The pancreatogram showed a normal filling head and neck of the pancreas. Full filling of the body and tail the pancreas was not performed intentionally to not exacerbate the pancreatitis. The common bile duct was dara
[2019-11-24 04:00] VITALS: BP 104/68; PULSE 57; RESP 16; TEMP 36.9; O2SAT 95
--- NOTE | 2019-11-24 04:19 | PC.NURSE ---
Pt A&OX4 lungs CTA. Pt denies any pain, nausea or SOA, has tolerated diet well. Pt has active bowel sounds. Pt has ambulated to independently. Pt has rested quietly this shift, refused TEDS. VSS
[2019-11-24 05:04] VITALS: BMI 35.3
[2019-11-24 06:14] LABS: Basophils % 0.3 % (0.1-2.0); Eosinophils # 0.2 K/mm3 (0.0-0.4); Eosinophils % 2.9 % (0.1-12.0); Hematocrit 37.8 % (37.0-47.0); Hemoglobin 12.9 g/dL (12.2-16.2); Lymphocytes # 1.3 K/mm3 (0.7-4.5); Lymphocytes % 22.5 % (10-50); Mean Corpuscular HGB Conc 34.2 g/dL (31.8-35.4); Mean Corpuscular Hemoglobin 30.8 pg (27.0-31.2); Mean Corpuscular Volume 90.1 fl (81-99); Monocytes # 0.4 K/mm3 (0.1-1.0); Monocytes % 6.3 % (1.7-9.3); Neutrophils # 3.9 K/mm3 (1.8-7.8); Platelet Count 151 K/mm3 (142-424); Red Cell Distribution Width 12.5 % (11.5-17.5); White Blood Count 5.8 K/mm3 (4.8-10.8)
[2019-11-24 06:28] LABS: Alanine Aminotransferase 317 U/L (12-78); Alkaline Phosphatase 80 U/L (38-126); Aspartate Amino Transferase 169 U/L (14-36); Bilirubin,Indirect 1.1 mg/dL (0.0-0.9); Bilirubin,Total 1.1 mg/dl (0.2-1.3); Bilirubin,Unconjugated 1.1 mg/dL (0.0-1.1)
--- NOTE | 2019-11-24 07:01 | P.PN_ITS ---
Internal Medicine - PN: Subj *Date: 11/24/19 *Time: 07:01 Interval history: Patient has no complaints this morning. She denies abdominal pain. Patient underwent ERCP with sphincter of Oddi sphincterotomy yesterday to clear out some sludge and small stones. Patient tolerated ice chips and sips of water yesterday evening and so far is tolerating a clear liquid diet this morning. Exam Vital signs and Labs for Last 24 Hours: Temp Pulse Resp BP Pulse Ox 98.4 F 57 L 16 104/68 L 95 11/24/19 04:00 11/24/19 04:00 11/24/19 04:00 11/24/19 04:00 11/24/19 04:00 Laboratory Results - last 24 hr 11/24/19 06:07: WBC 5.8, RBC 4.20, Hgb 12.9, Hct 37.8, MCV 90.1, MCH 30.8, MCHC 34.2, RDW 12.5, Plt Count 151, MPV 9.0, Neut % (Auto) 68.0, Lymph % (Auto) 22.5, [place] % (Auto) 6.3, Eos % (Auto) 2.9, Baso % (Auto) 0.3, Neut # (Auto) 3.9, Lymph # (Auto) 1.3, [place] # (Auto) 0.4, Eos # (Auto) 0.2, Baso # (Auto) 0.0 11/24/19 06:07: Total Bilirubin 1.1, Direct Bilirubin 0.0, Conjugated Bilirubin 0.0, Indirect Bilirubin 1.1 H, Unconjugated Bilirubin 1.1, AST 169 H D, ALT 317 H*, Alkaline Phosphatase 80, Total Protein 6.0 L, Albumin 3.0 L D I & O for Last 24 hours: Intake & Output 11/21/19 11/22/19 11/23/19 11/24/19 11:59 11:59 11:59 11:59 Intake Total 690 / 690 2613 / 2613 Output Total 100 / 100 1800 / 1800 Balance 590 / 590 813 / 813 Weight 209 lb 7.026 oz 212 lb Narrative: Patient looks comfortable. She is drinking her liquids. Abdomen is soft, nontender, nondistended with active bowel sounds. Assessment and Plan (1) Acute gallstone pancreatitis Current visit: Yes Status: Acute Category: Medical Code(s): K85.10 - Biliary acute pancreatitis without necrosis or infection (2) BMI over 35 Current visit: Yes Status: Acute Category: Medical (3) Gastroesophageal reflux disease Current visit: Yes Status: Acute Category: Medical Code(s): K21.9 - Gastro-esophageal reflux disease without esophagitis - Assessment and plan all Dx Assessment and Plan for all problems:: 1. Trial of clear liquids this morning with advancement to full liquids at lunch. If patient tolerates diet today she will be discharged home 2. Patient will need outpatient cholecystectomy in the near future
--- NOTE | 2019-11-24 07:08 | HMH.GSPN ---
Subjective Patient reports: feels better Narrative: Patient underwent ERCP with sphincterotomy and extraction of sludge successfully yesterday by gastroenterology. At this point she is pain-free. Progress Note: A&P (1) Acute gallstone pancreatitis Status: Acute Assessment and plan: Patient has resolving biliary pancreatitis after successful ERCP. At this point she is clinically doing quite well. Probable discharge this afternoon with early outpatient follow-up for cholecystectomy. Current Visit: Yes (2) BMI over 35 Status: Acute Current Visit: Yes (3) Gastroesophageal reflux disease Status: Acute Current Visit: Yes Exam Vital signs and Labs for Last 24 Hours: Temp Pulse Resp BP Pulse Ox 98.4 F 57 L 16 104/68 L 95 11/24/19 04:00 11/24/19 04:00 11/24/19 04:00 11/24/19 04:00 11/24/19 04:00 Laboratory Results - last 24 hr 11/24/19 06:07: WBC 5.8, RBC 4.20, Hgb 12.9, Hct 37.8, MCV 90.1, MCH 30.8, MCHC 34.2, RDW 12.5, Plt Count 151, MPV 9.0, Neut % (Auto) 68.0, Lymph % (Auto) 22.5, [place] % (Auto) 6.3, Eos % (Auto) 2.9, Baso % (Auto) 0.3, Neut # (Auto) 3.9, Lymph # (Auto) 1.3, [place] # (Auto) 0.4, Eos # (Auto) 0.2, Baso # (Auto) 0.0 11/24/19 06:07: Total Bilirubin 1.1, Direct Bilirubin 0.0, Conjugated Bilirubin 0.0, Indirect Bilirubin 1.1 H, Unconjugated Bilirubin 1.1, AST 169 H D, ALT 317 H*, Alkaline Phosphatase 80, Total Protein 6.0 L, Albumin 3.0 L D I & O for Last 24 hours: Intake & Output 11/21/19 11/22/19 11/23/19 11/24/19 11:59 11:59 11:59 11:59 Intake Total 690 / 690 2613 / 2613 Output Total 100 / 100 1800 / 1800 Balance 590 / 590 813 / 813 Weight 209 lb 7.026 oz 212 lb - *Routine Abdominal Exam Present: soft Comments: Minimal subjective tenderness in the epigastrium without guarding or rebound.
[2019-11-24 07:22] LABS: Lipase 546 U/L (23-300)
[2019-11-24 08:00] VITALS: BP 114/72; PULSE 75; RESP 18; TEMP 36.9; O2SAT 95
--- NOTE | 2019-11-24 09:08 | PC.NURSE ---
dr. reynaga ok'd pt not having an iv.
--- NOTE | 2019-11-24 12:47 | PC.NURSE ---
pt has tolerated breakfast and lunch with out any complaints.
--- NOTE | 2019-11-24 15:33 | HMH.DCSUM ---
General - General Admission date:: 11/23/19 Discharge date: 11/24/19 HPI HPI: 59-year-old female with history of a hiatal hernia presented to the emergency department after approximately 16 hours of epigastric abdominal pain. Pain began at 3:00 in the morning on November 21. Pain is described as a pressure sensation in the epigastrium that radiated through to the shoulder blades. Patient took simethicone which had worked for her in the past but was ineffective this time. As pain increased to an 8 out of 10 patient finally decided to come to the emergency department. She did have associated nausea and diaphoresis but no vomiting. Patient's last intake was a piece of pie around 6 PM on Saturday evening. Work-up in the emergency department was consistent with gallstone pancreatitis. Patient was admitted with IV fluids and made n.p.o. This morning the patient reports minimal pain and no nausea. Ultrasound and surgical consult have been ordered Of note patient was admitted to the hospital in August of this year with a similar complaint with attention given to her cardiac status. Cardiac work-up was negative. She ultimately followed up with gastroenterology over her hiatal hernia. Patient reports since that hospitalization she has had 3-4 brief episodes of the same epigastric pain and pressure that would only last an hour and usually was relieved with simethicone. Hospital Course Hospital Course: Patient was admitted for pain control, IV fluids, and observation with repeat lipase and LFT's. Patient's LFTs and lipase improved by the following morning. Abd. US showed gallstones and biliary sludge. General Surgery was consulted. Patient will need cholecystectomy as outpatient. Due to diagnosis of gallstone pancreatitis Gastronenterology service was consulted. Patient underwent ERCP on 11/22 with sphincterotomy of the sphincter of Oddi along with clearing the to CBD. Patient's diet was advanced postoperatively and she toelrated both clear and full liquid diet. Objective Vital signs: Temp Pulse Resp BP Pulse Ox 98.4 F 75 18 114/72 95 11/24/19 08:00 11/24/19 08:00 11/24/19 08:00 11/24/19 08:00 11/24/19 08:00 Results Labs on day of discharge: Labs from last 24 hours 11/24/19 11/24/19 11/24/19 06:07 06:07 06:07 WBC 5.8 RBC 4.20 Hgb 12.9 Hct 37.8 MCV 90.1 MCH 30.8 MCHC 34.2 RDW 12.5 Plt Count 151 MPV 9.0 Neut % (Auto) 68.0 Lymph % (Auto) 22.5 [place] % (Auto) 6.3 Eos % (Auto) 2.9 Baso % (Auto) 0.3 Neut # (Auto) 3.9 Lymph # (Auto) 1.3 [place] # (Auto) 0.4 Eos # (Auto) 0.2 Baso # (Auto) 0.0 Total Bilirubin 1.1 Direct Bilirubin 0.0 Conjugated Bilirubin 0.0 Indirect Bilirubin 1.1 H Unconjugated Bilirubin 1.1 AST 169 H D ALT 317 H* Alkaline Phosphatase 80 Total Protein 6.0 L Albumin 3.0 L D Lipase 546 H DS: Diagnosis - Discharge Diagnosis (1) Acute gallstone pancreatitis Status: Acute (2) BMI over 35 Status: Acute (3) Gastroesophageal reflux disease Status: Acute Discharge Plan - Patient Discharge Instructions ACTIVITY: Continue current activity DIET: continue same diet Patient Instructions: DI for Pancreatitis - Follow up Plan Follow up with: Rosendo Witt MD [Staff Physician] - 12/04/19 9:45 am Jatinder Qureshi MD [Primary Care Provider] - 12/08/19 10:00 am Disposition: Home, Self-Intermediate Medications: Home Medications Medication Instructions Recorded Confirmed Type omeprazole 20 mg capsule,delayed 20 mg PO DAILY 90 Days #90 09/09/17 11/22/19 History release Prescriptions/Medication Reconciliation: Continued omeprazole 20 mg capsule,delayed release 20 mg PO DAILY 90 Days #90 - Problem Reconciliation Problems Reviewed?: Yes
== END 2019-11-24 14:55 | disposition home or self-care (01) | DRG 440 ==
LOC: ER 22:02 → 2ND 11-23 00:31
PROVIDERS: Emergency Medicine; Internal Medicine Gastroenterology; Admitting Provider Family Medicine; Emergency Provider Emergency Medicine; PCP Family Medicine; Visit Provider Family Medicine
PROC: (CPT 43264; principal; 2019-11-23 14:30)
DX: K85.10 Biliary acute pancreatitis without necrosis or infection (principal); D64.9 Anemia, unspecified; Z88.2 Allergy status to sulfonamides; Z88.0 Allergy status to penicillin; I34.1 Nonrheumatic mitral (valve) prolapse; K21.9 Gastro-esophageal reflux disease without esophagitis; K80.50 Calculus of bile duct without cholangitis or cholecystitis without obstruction
CPT/HCPCS: 43264; 36415; 71046; 74177; 74330; 76705; 80048; 80053; 80061; 80076; 81001; 82150; 83690; 84484; 85025; 87581; 87633; 87798; 93005; 96365; 96376; 99285; Q9967

== ENCOUNTER → 2019-12-08 10:48 | Outpatient (CLI) | payer BC, SELFPAY ==
[2019-12-08 12:01] LABS: Basophils % 0.6 % (0.1-2.0); Eosinophils # 0.1 K/mm3 (0.0-0.4); Eosinophils % 2.7 % (0.1-12.0); Hemoglobin 15.8 g/dL (12.2-16.2); Lymphocytes # 1.5 K/mm3 (0.7-4.5); Lymphocytes % 35.5 % (10-50); Mean Corpuscular HGB Conc 34.3 g/dL (31.8-35.4); Mean Corpuscular Hemoglobin 30.7 pg (27.0-31.2); Mean Corpuscular Volume 89.4 fl (81-99); Mean Platelet Volume 9.1 fl (7.4-10.4); Monocytes # 0.3 K/mm3 (0.1-1.0); Monocytes % 6.9 % (1.7-9.3); Neutrophils # 2.4 K/mm3 (1.8-7.8); Neutrophils % 54.3 % (37.0-80.0); Platelet Count 197 K/mm3 (142-424); Red Blood Count 5.14 M/mm3 (4.20-5.40); Red Cell Distribution Width 12.8 % (11.5-17.5); White Blood Count 4.4 K/mm3 (4.8-10.8)
[2019-12-08 12:21] LABS: Chloride 105 mmol/L (98-107); Potassium 4.3 mmoL/L (3.5-5.1); Sodium 141 mmol/L (136-145)
[2019-12-08 12:24] LABS: Alanine Aminotransferase 22 U/L (12-78); Albumin/Globulin Ratio 1.3 (1.1-1.8); Alkaline Phosphatase 63 U/L (38-126); Amylase 42 U/L (30-110); Anion Gap 12.3 mEq/L (5-15); Aspartate Amino Transferase 27 U/L (14-36); Bilirubin,Total 0.8 mg/dl (0.2-1.3); Blood Urea Nitrogen 13 mg/dl (7-17); Carbon Dioxide 28 mmol/L (22.0-30.0); Estimated Glomerular Filt Rate 74 ml/min (>60); GFR (African American) 89 ML/MIN (>60); Glucose 89 mg/dl (74-100); Lipase 121 U/L (23-300)
[2019-12-08 12:53] LABS: Coronavirus 19 IgG Antibody Negative (Negative); Coronavirus 19 IgM Antibody Negative (Negative)
== END ==
PROVIDERS: Visit Provider Surgery
DX: K85.10 Biliary acute pancreatitis without necrosis or infection (principal)
CPT/HCPCS: 36415; 80053; 82150; 83690; 85025; 86328

== ENCOUNTER 2019-12-09 09:07 | Day surgery (SDC) | payer BC, SELFPAY ==
[2019-12-07 15:10] VITALS: BMI 34.1
[2019-12-09] VITALS (14 sets, daily range): BP systolic 116–139; BP diastolic 64–90; PULSE 49–73; RESP 12–18; TEMP 36.3–43; O2SAT 96–100
--- NOTE | 2019-12-09 09:35 | P.PN_ITS ---
[facility] Anesthesia Checklist - Patient Identification Patient Identification: Arm Band, Verbal (Name & ) - Structural Data Admitted From: Home Planned Operative Procedure/s: Laparoscopic cholecystectomy Consent for Planned Operative Procedure(s) Verified: Yes Verified Documents: Surgical Consent, History and Physical - NPO Status Verified Time NPO: 21:00 - Chart Verification Results Verified: CBC, BMP - Additional verifications Anesthesia Reactions: No - Airway Assessment C-Spine Mobility Assessed: Yes (MP 2, TMD 3) TMJ Mobility Assessed: Yes Dentition: Good Dentition - Neurological Assessment Level of Consciousness: Awake, Alert, Appropriate, Follows Commands Hx Seizures: No Numbness or tingling in extremities: No - Anesthesia Plan Anesthesia Risk discussed: Yes Anesthesia Plan: Verified ASA Class: II Anesthesia Type: General [facility] History I have reviewed the patient's past medical history: Yes Medical History: Reports:: Gastroesophageal Reflux Disease(GERD), Valvular Heart Disease Denies:: Cancer, Diabetes Mellitus Type 1, Diabetes Mellitus Type 2, Internal Pacemaker, MRSA, Seizures *Have you ever received a pneumonia vaccine?: No *Have you received a flu vaccine this season?: No Other Medical History: Reports: Anemia, Arthritis, Other (mitral valve prolapse) Comment:: obesity Anesthesia experience/problems:: No prior complications Laterality Cases: Left: Other, Right: Total Hip Replacement Other Surgeries: Yes: Colonoscopy, EGD, Tubal Ligation, Other (wrist). No: Pacemaker Amputation: No Fractures: No - *Social History Last grade of school completed: Advanced degree Smoking Status: Never smoker # Packs/Day (cigarettes): 0 #Yrs smoked (if former smoker): 0 Alcohol Intake: never Alcohol Intake Frequency:: holidays/special occasions only Substance Use Type: denies use *Occupational Status:: retired Housing: house Household Members: spouse *Travel in the last 8 weeks: None Family Hx:: Coronary Artery Disease, Heart Attack, Hyperlipidemia, Hypertension, Thyroid Disorder
--- NOTE | 2019-12-09 11:11 | HMH.OPNOTE ---
Date of procedure: 12/09/19 Pre-op Diagnosis:: History of biliary pancreatitis Post-op Diagnosis:: Same Procedure performed:: Laparoscopic cholecystectomy Surgeon:: Rosendo Witt MD CAGE MAKER:: Jatinder Gould Anesthesia: JAYDON Estimated blood loss (mL): 20 Clinical Note:: Patient is a pleasant 59-year-old female. She has had several episodes of epigastric pain over several months and has seen gastroenterology and diagnosed with hiatal hernia. However, on 11/22/2019 developed high epigastric pain with radiation around bilateral upper quadrants and into her back. This became progressively severe throughout the day was not relieved and she presented to the emergency department in the evening of 11/22/2019. Evaluation in the emergency department, based on laboratory findings and CT findings, was consistent with pancreatitis with gallstones. Of note, CT scan also revealed Dilated confluence of the superior mesenteric vein, splenic vein and portal vein measuring up to 3 cm consistent with a varix of the portal vein. She was admitted for inpatient management underwent general surgery and gastroenterology consultation. She underwent ERCP with sphincterotomy by Dr. Palma. She convalesced well and plan was for outpatient cholecystectomy for history of biliary pancreatitis. She has been doing well on a low-fat diet. Although she does state that she had eaten out 1 time and had some looser stool. Operative findings:: She had a thickened gallbladder which was distended and full of numerous very small gallstones. She did have a stone in the cystic duct which was able to be manipulated back into the gallbladder lumen Operative note:: Patient was taken to the operating room. She was positioned in a supine position. General anesthesia was induced via endotracheal tube. Her abdomen was prepped and draped in the standard surgical fashion. Subumbilical skin incision was made and while performing abdominal wall lift Veress needle was inserted. CO2 pneumoperitoneum was achieved to 15 mmHg. 11 mm optical trocar was inserted at the umbilicus. Intraperitoneal contents were visualized. She was positioned in reverse Trendelenburg with left side down. A couple of 5 mm trochars were inserted in the right upper abdomen. 10 mm trocar was inserted in the epigastrium. Gallbladder was easily identified. It was grasped with an endoscopic grasping forcep. It was quite firm due to the gallbladder filled with numerous very small gallstones. He was retracted anteriorly and superiorly over the dome of the liver. Infundibulum of the gallbladder was retracted anterior laterally. Careful meticulous dissection was carried out at the neck of the gallbladder incising the visceral peritoneum. Dissection was carried out ultimately identifying the cystic duct and cystic artery as well as lymph node of [place]. There was a stone noted in the cystic duct and this was able to be manipulated back into the lumen of the gallbladder. The cystic duct was then isolated, multiply clipped, and sharply divided. Dissection was carried out using SHARMILA ultrasonic harmonic darius and the cystic artery was carefully coagulated with SHARMILA ultrasonic harmonic darius and divided. Gallbladder was dissected free from the liver in a retrograde fashion using SHARMILA ultrasonic harmonic darius. Gallbladder was placed within an Endo Catch retrieval device and removed from the peritoneal cavity via the umbilical trocar site which required extension of the fascial incision for delivery of the gallbladder. Gallbladder fossa was then inspected for hemostasis and irrigation and suctioning was performed. There was good hemostasis. Trochars were removed as CO2 pneumoperitoneum was evacuated. Fascia at the umbilicus was closed with multiple interrupted 0 Vicryl sutures. Local anesthetic was infiltrated. Skin incisions were closed with 4-0 Monocryl in a subcuticular fashion. Steri-Strips and dressings were applied.
--- NOTE | 2019-12-09 11:25 | P.PN_ITS ---
[facility] Anesthesia Record Part I Intake, IV Amount: 600 Estimated blood loss (mL): 20 Urine output (mL): 0 (NM) Blood Products used (#): none Blood Pressure: 139/85 SaO2: 96 Pulse Rate: 73 Respiratory Rate: 14 Temperature: 97.5 F Patient is:: Awake, Drowsy, Nasal O2, Stable Stable to PACU at:: 11:18
--- NOTE | 2019-12-09 13:51 | HMH.ANESII ---
[facility] Anesthesia Record Part II Discharge Time: 11:48 Destination: Surgical Day Care (OP Surgery) PACU nurse assessment reviewed?: Yes Patient Condition:: Good Anesthesia Complications:: None Swallowing reflex intact?: Yes Cyanosis?: No Blood Pressure: 127/76 Pulse Rate: 55 Temperature: 97.4 F Mental Status: Alert & Oriented Pain level:: 3 Nausea and/or vomitting:: None Intake, IV Amount: 25
== END 2019-12-09 12:51 | disposition home or self-care (01) ==
LOC: OR 09:09
PROVIDERS: PCP Family Medicine; Visit Provider Surgery
PROC: 0FT44ZZ Resection of Gallbladder, Percutaneous Endoscopic Approach (ICD-10-PCS; CPT 47562; principal; 2019-12-09 11:15)
DX: K85.10 Biliary acute pancreatitis without necrosis or infection (principal); K80.70 Calculus of gallbladder and bile duct without cholecystitis without obstruction; Z88.0 Allergy status to penicillin; Z88.2 Allergy status to sulfonamides; Z79.899 Other long term (current) drug therapy; K21.9 Gastro-esophageal reflux disease without esophagitis; I25.10 Atherosclerotic heart disease of native coronary artery without angina pectoris; M19.90 Unspecified osteoarthritis, unspecified site; D64.9 Anemia, unspecified; Z96.649 Presence of unspecified artificial hip joint; Z82.49 Family history of ischemic heart disease and other diseases of the circulatory system
CPT/HCPCS: 47562; 96374; J2405; J2710

== ENCOUNTER → 2020-01-04 11:52 | Outpatient (CLI) | payer BC, SELFPAY ==
[2020-01-04 12:39] LABS: Blood Urea Nitrogen 16 mg/dl (7-17); Estimated Glomerular Filt Rate 74 ml/min (>60); GFR (African American) 89 ML/MIN (>60)
== END ==
PROVIDERS: Visit Provider Surgery
DX: Z01.818 Encounter for other preprocedural examination (principal)
CPT/HCPCS: 36415; 82565; 84520

== ENCOUNTER → 2020-01-05 08:45 | Outpatient (CLI) | payer BC, SELFPAY ==
--- NOTE | 2020-01-05 08:45 | CT_ITS ---
Procedure: CT ANGIO ABDOMEN CLINICAL HISTORY: Abdominal pain, epigastric pain, follow-up portal vein aneurysm abnormal scan see prev ct fine cuts thru pancreas COMPARISON: CT CT ABDOMEN PELVIS W CON from 11/22/2019 TECHNIQUE: IV Contrast: 100ml Optiray 350 Axial images obtained with sagittal and coronal reformats. All CT scans at the facility use one or more dose reduction, viz: automated exposure control, ma/kV adjustment per patient size (including targeted exams where dose is matched to indication, i.e. head), or iterative reconstruction technique. FINDINGS: Three-phase imaging performed following bolus administration of contrast. Chronic changes are present in the lung bases with a calcified granuloma in the left lower lobe. There is a medium-sized hiatal hernia. The spleen, liver, adrenal glands, and pancreas has an unremarkable appearance. Previously noted haziness of the fat around the pancreatic tail is no longer apparent. There is mild dilatation of the splenic artery consistent with splenic artery aneurysm with some curvilinear calcification measuring 11 mm. There remains an enlarged portal vein involving the medial aspect of the portal vein measuring 3.2 cm in AP dimension not significantly changed. No evidence of portal vein thrombosis. There has been an interval cholecystectomy. The kidneys have an unremarkable appearance aside from mild prominence of the renal pelves on both sides right greater than left. No intestinal obstruction or free air. Postsurgical changes are present involving the anterior abdominal wall. IMPRESSION: 1. Interval cholecystectomy. There has been improvement in the mild stranding of the peripancreatic fat. 2. No change aneurysmal dilatation of the portal vein. Dictated by: Jarek Hendricks MD 01/06/2020 13:15 Jarek Hendricks MD in [facility] 01/06/2020 13:15
== END ==
PROVIDERS: PCP Family Medicine; Visit Provider Surgery
DX: R93.5 Abnormal findings on diagnostic imaging of other abdominal regions, including retroperitoneum (principal)
CPT/HCPCS: 74175; Q9967

== ENCOUNTER → 2020-07-19 08:58 | Outpatient (CLI) | payer BC, SELFPAY ==
[2020-07-19 09:54] LABS: Blood Urea Nitrogen 20 mg/dl (7-17); Estimated Glomerular Filt Rate 73 ml/min (>60); GFR (African American) 89 ML/MIN (>60)
== END ==
PROVIDERS: Visit Provider Surgery
DX: Z01.818 Encounter for other preprocedural examination (principal)
CPT/HCPCS: 36415; 82565; 84520

== ENCOUNTER → 2020-07-20 09:48 | Outpatient (CLI) | payer BC, SELFPAY ==
--- NOTE | 2020-07-20 09:49 | CT_ITS ---
Procedure: CT ANGIO ABDOMEN CLINICAL HISTORY: Aneurysm, follow-up portal vein aneurysm Follow up Checking for aneurysm in upper abdomen COMPARISON: CT CT ANGIO ABDOMEN from 01/05/2020 TECHNIQUE: IV Contrast: 100ml Isovue 370 Axial images obtained with sagittal and coronal reformats. All CT scans at the facility use one or more dose reduction, viz: automated exposure control, ma/kV adjustment per patient size (including targeted exams where dose is matched to indication, i.e. head), or iterative reconstruction technique. FINDINGS: There is a subpleural 7 mm nodule in the left lung base posterior laterally unchanged. Medium-sized hiatal hernia. Liver, spleen, adrenal glands, and kidneys have an unremarkable appearance. There is aneurysmal dilatation of the portal vein once again noted measuring 3.2 cm in AP dimension not significantly changed. No evidence of thrombus within the vein. Splenic artery aneurysm at 10 x 14 mm is unchanged. The superior mesenteric vein has an unremarkable appearance. No intestinal obstruction or free air. No evidence of appendicitis. There is colonic diverticulosis but no evidence of diverticulitis. Artifact is present from right hip prosthesis. IMPRESSION: Stable CT appearance of the abdomen and pelvis. No change in the 3.2 cm portal vein aneurysm and 10 x 14 mm splenic artery aneurysm. The Colonic diverticulosis without diverticulitis Dictated by: Jarek Hendricks MD 07/22/2020 10:10 Jarek Hendricks MD in [facility] 07/22/2020 10:10
== END ==
PROVIDERS: PCP Family Medicine; Visit Provider Surgery
DX: I72.8 Aneurysm of other specified arteries (principal)
CPT/HCPCS: 74175; Q9967

== ENCOUNTER → 2020-07-22 08:46 | Outpatient (CLI) | payer BC, SELFPAY | PROVIDERS: PCP Family Medicine; Visit Provider Surgery | DX: I72.8 Aneurysm of other specified arteries (principal) ==

== ENCOUNTER → 2021-01-09 07:36 | Outpatient (CLI) | payer BC, SELFPAY ==
[2021-01-09 08:32] LABS: Blood Urea Nitrogen 13 mg/dl (7-17); Estimated Glomerular Filt Rate 86 ml/min (>60); GFR (African American) 104 ML/MIN (>60)
== END ==
PROVIDERS: Visit Provider Surgery
DX: Z01.812 Encounter for preprocedural laboratory examination (principal)
CPT/HCPCS: 36415; 82565; 84520

== ENCOUNTER → 2021-01-11 12:43 | Outpatient (CLI) | payer BC, SELFPAY ==
--- NOTE | 2021-01-11 12:43 | CT_ITS ---
PROCEDURE INFORMATION: Exam: CT Angiography Abdomen With Contrast Exam date and time: 01/11/2021 12:43 PM Age: 60 years old Clinical indication: Condition or disease; Other: Portal vein aneurysm; Prior surgery; Surgery date: 6+ months; Surgery type: Gb; Additional info: Aneurysm eval TECHNIQUE: Imaging protocol: Computed tomographic angiography images of the abdomen with intravenous contrast material. 3D rendering (Not supervised by radiologist): MIP and/or 3D reconstructed images were created by the technologist. Radiation optimization: All CT scans at this facility use at least one of these dose optimization techniques: automated exposure control; mA and/or kV adjustment per patient size (includes targeted exams where dose is matched to clinical indication); or iterative reconstruction. Contrast material: ISOVUE; Contrast volume: 75 ml; Contrast route: INTRAVENOUS (IV); COMPARISON: CT ANGIO ABDOMEN 07/22/2020 9:08 AM FINDINGS: Lungs: 7.5 mm pleural based nodule left lower lobe. Series 3, image 9.. Mediastinum: Moderate hiatal hernia Aorta: No aortic aneurysm. No aortic dissection. Celiac trunk and mesenteric arteries: No occlusion or significant stenosis. Renal arteries: No occlusion or significant stenosis. Portal Venous System: The portal vein aneurysm has decreased slightly in size and measures 2.9 by 3 cm. There are no delayed images to evaluate for thrombus in the portal vein. This is the arterial phase where contrasted and uncontrasted blood are evident on the same images. Liver: Normal. No mass. Gallbladder and bile ducts: Cholecystectomy Pancreas: Normal. No ductal dilation. Spleen: Normal. No splenomegaly. Adrenals: Normal. No mass. Kidneys and ureters: Normal. No hydronephrosis. Stomach and bowel: Unremarkable. No obstruction. No mucosal thickening. Lymph nodes: Unremarkable. No enlarged lymph nodes. Intraperitoneal space: Unremarkable. No free air. No significant fluid collection. Bones/joints: Unremarkable. No acute fracture. No dislocation. Soft tissues: Unremarkable. IMPRESSION: 1. The portal vein aneurysm has decreased slightly in size and measures 2.9 by 3 cm. There are no delayed images to evaluate for thrombus in the portal vein. This is the arterial phase where contrasted and uncontrasted blood are evident on the same images. 2. 7.5 mm pleural based nodule left lower lobe. Series 3, image 9.. For patients at low risk (minimal or absent history of smoking and of other known risk factors), recommend CT Chest at 6-12 months, then consider CT Chest at 18-24 months. For patients at high risk (history of smoking or of other known risk factors), recommend CT Chest at 6-12 months, then CT Chest at 18-24 months. (Reference: Manpreet) References: Manpreet Ahn et al. Guidelines for Management of Incidental Pulmonary Nodules Detected on CT Images: From the Fleischner Society 2017. Radiology. 2017;284(1):228-243.
== END ==
PROVIDERS: PCP Family Medicine; Visit Provider Surgery
DX: K85.90 Acute pancreatitis without necrosis or infection, unspecified (principal); I72.8 Aneurysm of other specified arteries
CPT/HCPCS: 74175; Q9967

== ENCOUNTER → 2021-02-06 07:53 | Outpatient (CLI) | payer BC, SELFPAY ==
--- NOTE | 2021-02-06 07:56 | MM_ITS ---
PROCEDURE INFORMATION: Exam: MG Bilateral Screening 3D Mammography Exam date and time: 02/06/2021 7:56 AM Age: 60 years old Clinical indication: Encounter for screening mammogram for malignant neoplasm of breast TECHNIQUE: Imaging protocol: Bilateral screening tomosynthesis and 2D mammography including computer-aided detection (CAD) when performed. COMPARISON: 1. MG SCBI MM Dig screening mamm BI w/CAD 06/25/2018 10:20 AM 2. MG BC DIGITAL MAMMO SCREEN 09/24/2011 2:19 PM FINDINGS: MAMMOGRAPHY: Breast composition: There are scattered areas of fibroglandular density. Mass: No suspicious masses. Architectural distortion: No suspicious distortion. Calcifications: No suspicious calcifications. Asymmetric density: None. Skin thickening: None. Axillary adenopathy: None. IMPRESSION: No mammographic evidence of malignancy. Annual screening is recommended unless otherwise clinically indicated. ASSESSMENT: BI-RADS Category 1: Negative
== END ==
PROVIDERS: PCP Family Medicine; Visit Provider Family Medicine
DX: Z12.31 Encounter for screening mammogram for malignant neoplasm of breast (principal)
CPT/HCPCS: 77063; 77067

== ENCOUNTER → 2021-02-13 09:16 | Outpatient (CLI) | payer BC, SELFPAY ==
--- NOTE | 2021-02-13 09:24 | XR_ITS ---
PROCEDURE: XR DEXA AXIAL SKELETON CLINICAL HISTORY: POST MENOPAUSAL COMPARISON: No exams were available for comparison FINDINGS: Radius 1/3 density is 0.734 grams/centimeter sq with a T-score of 0.7 The left hip BMD is 0.818 with a T-score of -0.3. The lumbar spine BMD is 0.932 with a T-score of -1.0. IMPRESSION: This patient is considered normal according to the World Health Organization criteria. Fracture risk is low. Based on these results a follow-up exam is recommended in 2 year. Dictated by: Jarek eHndricks MD 02/13/2021 13:07 Jarek Hendricks MD in [facility] 02/13/2021 13:07
== END ==
PROVIDERS: PCP Family Medicine; Visit Provider Family Medicine
DX: M85.852 Other specified disorders of bone density and structure, left thigh (principal); Z78.0 Asymptomatic menopausal state
CPT/HCPCS: 77080

== ENCOUNTER → 2021-08-01 07:53 | Outpatient (CLI) | payer BC, SELFPAY ==
--- NOTE | 2021-08-01 07:53 | US_ITS ---
FINAL REPORT CLINICAL HISTORY: history of portal vein aneurysm COMPARISON: CTA abdomen report dated January 11, 2021. FINDINGS: ULTRASOUND RIGHT UPPER QUADRANT Sonographic imaging of the right upper quadrant was obtained. The pancreas is partially obscured. There is a portal venous aneurysm measuring up to 2.7 cm in diameter on today's exam. The liver is otherwise unremarkable. The gallbladder is surgically absent. There is no biliary ductal dilatation. The common duct is normal at 4 mm. Limited images of the right kidney are unremarkable. IMPRESSION: . Previously noted portal venous aneurysm. Liver protocol CT could probably better defined this abnormality. Reviewed, Interpreted and Dictated by Robert Bhatt MD Transcribed by Maida Padron Authenticated by Robert Bhatt MD on 08/01/2021 12:20:[address] [facility]
== END ==
PROVIDERS: PCP Family Medicine; Visit Provider Surgery
DX: I72.8 Aneurysm of other specified arteries (principal)
CPT/HCPCS: 93975

== ENCOUNTER → 2022-02-01 07:43 | Outpatient (CLI) | payer BC, SELFPAY ==
--- NOTE | 2022-02-01 07:43 | US_ITS ---
FINAL REPORT CLINICAL HISTORY: hx of portal vein aneurysm-- gb removed COMPARISON: 08/01/2021 FINDINGS: Sonographic images of the right upper quadrant were obtained. The pancreas is partially obscured.The liver has an unremarkable appearance. The gallbladder is absent. There is aneurysmal dilatation of the main portal vein measuring 2.8 cm, previously measured 2.7 cm. The common duct measures 2 mm. Limited images of the right kidney are unremarkable. IMPRESSION: Aneurysmal dilatation of the main portal vein, no significant change from previous. Reviewed, Interpreted and Dictated by Rosendo Wolfe III, MD Transcribed by Melita Blackmon Authenticated and . [facility]
== END ==
PROVIDERS: PCP Family Medicine; Visit Provider Surgery
DX: I86.8 Varicose veins of other specified sites (principal)
CPT/HCPCS: 93975

== ENCOUNTER → 2022-07-10 07:48 | Outpatient (CLI) | payer BC, SELFPAY ==
--- NOTE | 2022-07-10 07:48 | US_ITS ---
FINAL REPORT CLINICAL HISTORY: FU PORTAL ANEURYSM COMPARISON: 02/01/2022 FINDINGS: RIGHT UPPER QUADRANT ULTRASOUND Sonographic images of the right upper quadrant were obtained. The pancreas is normal. There is fatty infiltration of the liver. The gallbladder is absent. The common duct is normal. The portal vein measures up to 2.8 cm, unchanged from previous. There is thinning of the cortex of the right kidney. IMPRESSION: Persistent dilation of a segment of the portal vein, stable. Fatty liver. Reviewed, Interpreted and Dictated by Robert Bhatt MD Transcribed by Melita Blackmon Authenticated and [facility]
== END ==
PROVIDERS: PCP Family Medicine; Visit Provider Surgery
DX: I72.8 Aneurysm of other specified arteries (principal)
CPT/HCPCS: 93975

== ENCOUNTER → 2022-10-04 07:47 | Outpatient (CLI) | payer BC, SELFPAY ==
--- NOTE | 2022-10-04 07:51 | MM_ITS ---
PROCEDURE INFORMATION: Exam: MG Bilateral Screening 3D Mammography Exam date and time: 10/04/2022 7:49 AM Age: 62 years old Clinical indication: Screening examination TECHNIQUE: Imaging protocol: Bilateral Screening tomosynthesis and 2D mammography including computer-aided detection (CAD) when performed. COMPARISON: 1. MG MM DIG SCREENING MAMM BI W/CAD 02/06/2021 7:57 AM 2. MG SCBI MM Dig screening mamm BI w/CAD 06/25/2018 10:20 AM FINDINGS: MAMMOGRAPHY: Breast composition: There are scattered areas of fibroglandular density. Mass: None. Architectural distortion: None. Calcifications: No suspicious calcifications. Asymmetric density: None. Skin thickening: None. Axillary adenopathy: None. IMPRESSION: No mammographic evidence of malignancy. Annual screening is recommended unless otherwise clinically indicated. ASSESSMENT: BI-RADS Category 1: Negative
== END ==
PROVIDERS: PCP Family Medicine; Visit Provider Family Medicine
DX: Z12.31 Encounter for screening mammogram for malignant neoplasm of breast (principal)
CPT/HCPCS: 77063; 77067

== ENCOUNTER 2023-07-18 08:26 | Outpatient (CLI) | payer BC, SELFPAY ==
--- NOTE | 2023-07-18 08:26 | US_ITS ---
FINAL REPORT CLINICAL HISTORY: FU PORTAL ANEURYSM COMPARISON: 07/10/2022 FINDINGS: Sonographic images of the right upper quadrant were obtained. The pancreas is partially obscured. There is mild fatty infiltration of the liver. The gallbladder is surgically absent. There is no evidence of biliary ductal dilatation.The common duct measures 3 mm. Limited images of the right kidney are unremarkable. There is aneurysmal dilatation of the portal vein measuring up to 2.9 cm in diameter, previously measured 2.7 cm. IMPRESSION: Mild fatty liver. Portal vein aneurysmal dilatation up to 2.9 cm. Reviewed, Interpreted and Dictated by Rosendo Wolfe III, MD Transcribed by Yvonne Arita Authenticated and [facility]
== END 2023-07-18 23:59 | disposition home or self-care (01) ==
LOC: RAD 08:26
PROVIDERS: PCP Family Medicine; Visit Provider Surgery
DX: I86.8 Varicose veins of other specified sites (principal)
CPT/HCPCS: 93975

== ENCOUNTER 2024-08-06 07:40 | Outpatient (CLI) | payer BC, SELFPAY ==
--- NOTE | 2024-08-06 | MM_ITS ---
PROCEDURE INFORMATION: Exam: MG Bilateral Screening 3D Mammography Exam date and time: 08/06/2024 8:17 AM Age: 64 years old Clinical indication: Screening examination TECHNIQUE: Imaging protocol: Bilateral Screening tomosynthesis and 2D mammography including computer-aided detection (CAD) when performed. COMPARISON: 1. MG MM DIG SCREENING MAMM BI W/CAD 10/04/2022 7:49 AM 2. MG MM DIG SCREENING MAMM BI W/CAD 02/06/2021 7:57 AM FINDINGS: MAMMOGRAPHY: Breast composition: The breasts are almost entirely fatty. Mass: None. Architectural distortion: None. Calcifications: No suspicious calcifications. Asymmetric density: None. Skin thickening: None. Axillary adenopathy: None. IMPRESSION: No mammographic evidence of malignancy. Annual screening is recommended unless otherwise clinically indicated. ASSESSMENT: BI-RADS Category 1: Negative.
== END 2024-08-06 23:59 | disposition home or self-care (01) ==
LOC: RAD 07:42
PROVIDERS: PCP Family Medicine; Visit Provider Family Medicine
DX: Z12.31 Encounter for screening mammogram for malignant neoplasm of breast (principal)
CPT/HCPCS: 77063; 77067